=== PATIENT | male | born 1960 | race Two or more races ===

== ENCOUNTER 2021-06-18 10:36 | Inpatient (IN) ==
[2021-06-18] MEDS ORDERED: CALCIUM GLUCONATE 10% 1,000 MG in SODIUM CHLORIDE 0.9% 50 ML IV STA (11:03)
[2021-06-18] MEDS ORDERED: ACETAMINOPHEN 500 MG TAB PO STA (11:03)
[2021-06-18] MEDS ORDERED: ONDANSETRON INJ 2 MG/ML 2 ML VIAL IV STA (11:04)
--- NOTE | 2021-06-18 11:04 | Emergency Department Note ---
History of Present Illness General Chief complaint: Shortness of Breath/Dyspnea Stated complaint: SOB Time Seen by Provider: 06/18/21 10:50 History of Present Illness Provider complaint: "I need dialysis" Onset (ago): day(s) 1 Associated symptoms: + fever/chills, + malaise, + nausea/vomiting and + shortness of breath; no chest pain, no cough or no headaches [id number] male presents emergency department I need dialysis". Patient is from [place] [facility]. Patient states he flew from [place] [facility] on Friday. Patient states he has end-stage renal disease on hemodialysis Friday and . Patient states last night he began not feeling well. He reports having cough, shortness of breath, and nausea. No vomiting. Patient reports he has not felt feverish. Patient states he flew from [place] [facility] on Friday and went to a [employer] dialysis station today and was referred to the emergency department because he is not have any hemodialysis orders or recovery manager in this country. Home Medications Medication Instructions Recorded Confirmed Type bisoprolol fumarate 5 mg tablet 2.5 mg PO DAILY 06/18/21 06/18/21 History fluticasone fur. 100 mcg-umeclid 1 inh INHALATION DAILY 06/18/21 06/18/21 History 62.5 mcg-vilant 25 mcg inhalat.powder (Trelegy Ellipta) gabapentin 400 mg capsule 400 mg PO HS 06/18/21 06/18/21 History gel base no.102 (bulk) (Carbomer 1 ea MISCELLANEOUS HS 06/18/21 06/18/21 History Gel-Aqueous) iron fum-vit C-B complex-FA 29 1 tab PO DAILY 06/18/21 06/18/21 History mg-800 mcg tablet (DIALYVITE 800 with Iron) linagliptin 5 mg tablet 5 mg PO DAILY 06/18/21 06/18/21 History Allergies Allergy/AdvReac Type Severity Reaction Status Date / Time No Known Allergies Allergy Unverified 06/18/21 12:50 Past Med/Surg History Medical History Diabetes ESRD on dialysis HTN (hypertension) No pertinent family history Surgical History No pertinent past surgical history Social History Smoking Status: Current every day smoker Feels Safe at Home: Yes Review of Systems A total of 10 systems reviewed and were otherwise negative Physical Exam Vital Signs Vital Signs - 24 hr 06/18/21 10:40 06/18/21 10:51 06/18/21 11:21 Temperature 38 C H Temperature Source Oral Pulse Rate 95 H Pulse Rate [Left Radial] Pulse Rate from SpO2 Sensor Respiratory Rate 22 Respiratory Effort / Characteristics Non-Labored Spontaneous Non-Labored Spontaneous Non-Labored Spontaneous Respiratory Depth Normal Respiratory Pattern Regular Blood Pressure 182/79 H Blood Pressure Mean 113 Blood Pressure Position Lying Pulse Oximetry 95 Oxygen Delivery Method Room Air Room Air Room Air Oxygen Flow Rate Sepsis Recent Fever Within 48 Hours No Sepsis New/Unexplained Change in Mental Status No Sepsis Action Taken by Nursing No Action Required Oxygen Flow Rate - Titration Pulse Oximetry Post Tiitration 06/18/21 11:22 06/18/21 11:27 06/18/21 11:30 Temperature Temperature Source Pulse Rate 93 H Pulse Rate [Left Radial] Pulse Rate from SpO2 Sensor 94 H Respiratory Rate 23 Respiratory Effort / Characteristics Non-Labored Spontaneous Respiratory Depth Respiratory Pattern Blood Pressure 135/73 Blood Pressure Mean 93 Blood Pressure Position Pulse Oximetry 93 Oxygen Delivery Method Room Air Room Air Room Air Oxygen Flow Rate Sepsis Recent Fever Within 48 Hours Sepsis New/Unexplained Change in Mental Status Sepsis Action Taken by Nursing Oxygen Flow Rate - Titration Pulse Oximetry Post Tiitration 06/18/21 11:46 06/18/21 12:00 06/18/21 12:21 Temperature Temperature Source Pulse Rate 93 H Pulse Rate [Left Radial] Pulse Rate from SpO2 Sensor 93 H Respiratory Rate 21 Respiratory Effort / Characteristics Non-Labored Spontaneous Respiratory Depth Respiratory Pattern Blood Pressure 112/61 Blood Pressure Mean 78 Blood Pressure Position Pulse Oximetry 93 Oxygen Delivery Method Room Air Room Air Room Air Oxygen Flow Rate Sepsis Recent Fever Within 48 Hours Sepsis New/Unexplained Change in Mental Status Sepsis Action Taken by Nursing Oxygen Flow Rate - Titration Pulse Oximetry Post Tiitration 06/18/21 12:30 06/18/21 12:46 06/18/21 13:00 Temperature Temperature Source Pulse Rate 88 Pulse Rate [Left Radial] 90 Pulse Rate from SpO2 Sensor 88 Respiratory Rate 22 21 Respiratory Effort / Characteristics Non-Labored Spontaneous Non-Labored Spontaneous Respiratory Depth Respiratory Pattern Blood Pressure 89/49 L Blood Pressure Mean 62 Blood Pressure Position Pulse Oximetry 91 100 Oxygen Delivery Method Room Air Room Air Nebulizer Oxygen Flow Rate Sepsis Recent Fever Within 48 Hours Sepsis New/Unexplained Change in Mental Status Sepsis Action Taken by Nursing Oxygen Flow Rate - Titration Pulse Oximetry Post Tiitration 06/18/21 13:12 06/18/21 13:14 06/18/21 13:30 Temperature Temperature Source Pulse Rate 88 87 93 H Pulse Rate [Left Radial] Pulse Rate from SpO2 Sensor 88 87 84 Respiratory Rate 21 26 H 26 H Respiratory Effort / Characteristics Non-Labored Spontaneous Respiratory Depth Respiratory Pattern Blood Pressure 79/44 L 89/45 L 84/45 L Blood Pressure Mean 55 59 58 Blood Pressure Position Pulse Oximetry 100 100 99 Oxygen Delivery Method Nebulizer Nebulizer Nebulizer Oxygen Flow Rate Sepsis Recent Fever Within 48 Hours Sepsis New/Unexplained Change in Mental Status Sepsis Action Taken by Nursing Oxygen Flow Rate - Titration Pulse Oximetry Post Tiitration 06/18/21 13:45 06/18/21 14:00 06/18/21 14:15 Temperature Temperature Source Pulse Rate 89 98 H 96 H Pulse Rate [Left Radial] Pulse Rate from SpO2 Sensor 88 99 H 95 H Respiratory Rate 24 25 H 14 Respiratory Effort / Characteristics Non-Labored Spontaneous Respiratory Depth Respiratory Pattern Blood Pressure 79/41 L 103/58 L 91/41 L Blood Pressure Mean 53 73 57 Blood Pressure Position Pulse Oximetry 100 93 98 Oxygen Delivery Method Nebulizer Nebulizer Oxygen Flow Rate Sepsis Recent Fever Within 48 Hours Sepsis New/Unexplained Change in Mental Status Sepsis Action Taken by Nursing Oxygen Flow Rate - Titration Pulse Oximetry Post Tiitration 06/18/21 14:28 06/18/21 14:30 06/18/21 14:39 Temperature 37.2 C Temperature Source Oral Pulse Rate 94 H Pulse Rate [Left Radial] Pulse Rate from SpO2 Sensor 94 H Respiratory Rate 17 Respiratory Effort / Characteristics Non-Labored Spontaneous Respiratory Depth Respiratory Pattern Blood Pressure 93/49 L Blood Pressure Mean 63 Blood Pressure Position Pulse Oximetry 88 L 94 Oxygen Delivery Method Nasal Cannula Nasal Cannula Oxygen Flow Rate 0 2 Sepsis Recent Fever Within 48 Hours Sepsis New/Unexplained Change in Mental Status Sepsis Action Taken by Nursing Oxygen Flow Rate - Titration 2 Pulse Oximetry Post Tiitration 94 06/18/21 14:45 06/18/21 14:47 06/18/21 14:51 Temperature Temperature Source Pulse Rate 91 H 91 H 91 H Pulse Rate [Left Radial] Pulse Rate from SpO2 Sensor 91 H 91 H 91 H Respiratory Rate 17 17 22 Respiratory Effort / Characteristics Respiratory Depth Respiratory Pattern Blood Pressure 77/43 L 74/41 L 91/48 L Blood Pressure Mean 54 52 62 Blood Pressure Position Pulse Oximetry 95 95 97 Oxygen Delivery Method Oxygen Flow Rate 2 2 2 Sepsis Recent Fever Within 48 Hours Sepsis New/Unexplained Change in Mental Status Sepsis Action Taken by Nursing Oxygen Flow Rate - Titration Pulse Oximetry Post Tiitration 06/18/21 15:00 06/18/21 15:15 06/18/21 15:30 Temperature Temperature Source Pulse Rate 92 H 89 90 Pulse Rate [Left Radial] Pulse Rate from SpO2 Sensor 93 H 89 90 Respiratory Rate 18 18 17 Respiratory Effort / Characteristics Non-Labored Spontaneous Non-Labored Spontaneous Respiratory Depth Respiratory Pattern Blood Pressure 122/57 L 115/52 L 123/58 L Blood Pressure Mean 78 73 79 Blood Pressure Position Pulse Oximetry 96 95 97 Oxygen Delivery Method Nasal Cannula Nasal Cannula Nasal Cannula Oxygen Flow Rate 2 2 2 Sepsis Recent Fever Within 48 Hours Sepsis New/Unexplained Change in Mental Status Sepsis Action Taken by Nursing Oxygen Flow Rate - Titration Pulse Oximetry Post Tiitration 06/18/21 15:45 06/18/21 16:00 06/18/21 16:15 Temperature Temperature Source Pulse Rate 88 90 90 Pulse Rate [Left Radial] Pulse Rate from SpO2 Sensor 88 89 90 Respiratory Rate 16 17 16 Respiratory Effort / Characteristics Non-Labored Spontaneous Respiratory Depth Respiratory Pattern Blood Pressure 101/50 L 131/63 101/56 L Blood Pressure Mean 67 85 71 Blood Pressure Position Pulse Oximetry 98 97 97 Oxygen Delivery Method Nasal Cannula Nasal Cannula Nasal Cannula Oxygen Flow Rate 2 2 2 Sepsis Recent Fever Within 48 Hours Sepsis New/Unexplained Change in Mental Status Sepsis Action Taken by Nursing Oxygen Flow Rate - Titration Pulse Oximetry Post Tiitration 06/18/21 16:30 06/18/21 16:45 06/18/21 17:00 Temperature Temperature Source Pulse Rate 93 H 89 89 Pulse Rate [Left Radial] Pulse Rate from SpO2 Sensor 93 H 89 90 Respiratory Rate 19 15 16 Respiratory Effort / Characteristics Non-Labored Spontaneous Non-Labored Spontaneous Respiratory Depth Respiratory Pattern Blood Pressure 118/60 94/52 L 95/50 L Blood Pressure Mean 79 66 65 Blood Pressure Position Pulse Oximetry 96 96 96 Oxygen Delivery Method Nasal Cannula Nasal Cannula Nasal Cannula Oxygen Flow Rate 2 2 2 Sepsis Recent Fever Within 48 Hours Sepsis New/Unexplained Change in Mental Status Sepsis Action Taken by Nursing Oxygen Flow Rate - Titration Pulse Oximetry Post Tiitration 06/18/21 17:15 06/18/21 17:30 Temperature Temperature Source Pulse Rate 88 88 Pulse Rate [Left Radial] Pulse Rate from SpO2 Sensor 88 88 Respiratory Rate 26 H 30 H Respiratory Effort / Characteristics Respiratory Depth Respiratory Pattern Blood Pressure 127/62 127/65 Blood Pressure Mean 83 85 Blood Pressure Position Pulse Oximetry 96 97 Oxygen Delivery Method Nasal Cannula Nasal Cannula Oxygen Flow Rate 2 2 Sepsis Recent Fever Within 48 Hours Sepsis New/Unexplained Change in Mental Status Sepsis Action Taken by Nursing Oxygen Flow Rate - Titration Pulse Oximetry Post Tiitration Physical Exam GENERAL: He is oriented to person, place, and time. He appears well-developed and well-nourished. He does not appear distressed. HENT: Exam performed. - Head: Normocephalic and atraumatic. - Right Ear: External ear normal. No mastoid tenderness. - Left Ear: External ear normal. No mastoid tenderness. - Mouth/Throat: The oropharynx is clear and moist. No trismus in the jaw. No dental abscesses or uvula swelling. No oropharyngeal exudate or tonsillar abscesses. EYES: Conjunctivae and EOM are normal. Pupils are equal, round, and reactive to light. Right eye exhibits no discharge. Left eye exhibits no discharge. No scleral icterus. NECK: Normal range of motion. Neck supple. No JVD present. No spinous process tenderness present. No carotid bruit present. No rigidity. No tracheal deviation and normal range of motion present. No Brudzinski's sign and no Kernig's sign noted. CV: Normal rate, regular rhythm, normal heart sounds and intact distal pulses. There is no peripheral edema. Palpable radial pulses bue. PULM/CHEST: Rhonchi and rales bilaterally. ABD: The abdomen is soft. Bowel sounds are normal. He has no distension. No mass is present. There is no tenderness. There is no rebound, no guarding, no Smith's sign and no tenderness at McBurney's point. Rovsig negative. MUSC/SKEL: Left upper extremity AV fistula with palpable thrill. LYMPH: No cervical adenopathy. NEURO: He is alert and oriented to person, place, and time. He has normal strength. No cranial nerve deficit or sensory deficit. Coordination and gait normal. GCS eye subscore is 4. GCS verbal subscore is 5. GCS motor subscore is 6. Cerebellar tests wnl. SKIN: Skin is warm and dry. He is not diaphoretic. PSYCH: He has a normal mood and affect. Behavior is normal. Judgment and thought content normal. Course Course 1050: The patient was evaluated in room C3. A complete history and physical exam was performed Cardiac monitoring: An order was placed for continuous cardiac monitoring. The monitor shows a rate of 90 with sinus rhythm 1105: EKG shows peaked T waves. Calcium gluconate ordered for the patient. 1225: Patient was a difficult vascular access. Labs were obtained and the patient's [id number] potassium 7.6. Given this as well as the clinical history of the patient missing dialysis, and the patient's PTH, the patient will be treated with insulin and dextrose, albuterol inhaler, bicarb, and Kayexalate. 1237: Discussed patient's case with Dr. Shamar PATEL nephrology. He states that he did not have a dialysis nurse currently. He states that he will try to arrange for dialysis nurse to be brought in to the patient can be dialyzed. 1327:Patient now hypotensive. Labs show leukocytosis of 18.2. Potassium 7.5. Creatinine 13.9. Anion gap 14. Covid negative. Chest x-ray shows fluid overload and left lower lung airspace opacity which may represent atelectasis pneumonia or aspiration. Given the patient's leukocytosis and fever, will treat with empiric antibiotics. Discussed with Dr. Hong nephrology, he states if the patient is stabilized that the patient can be admitted to the hospitalist team and he can arrange for dialysis later tonight as he is getting treatment regimen that should lower the patient's potassium. Discussed the case with Dr. Lavinia PATEL hospitalist who is asking that the patient be evaluated by the ICU team given the hypotension and him needing dialysis. 1345:Patient remaining hypotensive. Patient alert and oriented x3 asking for food. 250 cc normal saline bolus ordered for the patient.Spoke with ICU Dr. Dominique who states there are no ICU beds available at this time. He states that the patient is mentating well that the patient can be admitted to the PCU. Discussed with Dr. Gordon who will evaluate the patient further. 1400: Vital signs stable after IV fluid bolus. Patient tolerating p.o. with no distress. 1500: Vital signs stable. Blood pressure stable. Patient's blood pressure went down when he was asleep but is normal when he is awake. Patient asking for more food and to get dialysis. Awaiting hospital bed. Administered Medications Discontinued Medications Acetaminophen (Acetaminophen 500 Mg Tab) 1,000 mg PO NOW STA Stop: 06/18/21 11:04 Last Admin: 06/18/21 11:29 Dose: 1,000 mg Documented by: [id number] Albuterol (Albuterol 0.5% Neb Soln 2.5 Mg/0.5 Ml Vial) 10 mg NEB NOW STA Stop: 06/18/21 12:22 Last Admin: 06/18/21 12:46 Dose: 10 mg Documented by: [id number] Dextrose (Dextrose 50% 50 Ml Syringe) 50 ml IV NOW STA Stop: 06/18/21 12:22 Last Admin: 06/18/21 12:41 Dose: 50 ml Documented by: [id number] Calcium Gluconate 1,000 mg/ (Sodium Chloride) 60 mls @ 240 mls/hr IV NOW STA Stop: 06/18/21 11:17 Last Infusion: 06/18/21 11:44 Dose: 0 mls/hr Documented by: [id number] Admin: 06/18/21 11:29 Dose: 240 mls/hr Documented by: [id number] Insulin Human Regular 5 units/ (Syringe) 9.9 mls @ 3 mls/sec IV ONE STA Stop: 06/18/21 12:22 Last Admin: 06/18/21 12:42 Dose: 3 mls/sec Documented by: [id number] Cosigned by: [id number] Sodium Bicarbonate 150 meq/ (Dextrose) 1,150 mls @ 290 mls/hr IV .Q3H58M STA Stop: 06/18/21 16:18 Last Infusion: 06/18/21 16:14 Dose: 0 mls/hr Documented by: [id number] Infusion: 06/18/21 13:17 Dose: 0 mls/hr Documented by: [id number] Admin: 06/18/21 12:53 Dose: 290 mls/hr Documented by: [id number] Cefepime HCl (Maxipime) 2,000 mg in 20 mls @ 5 mls/min IV NOW STA; Protocol Stop: 06/18/21 13:21 Last Admin: 06/18/21 13:41 Dose: 5 mls/min Documented by: [id number] Vancomycin HCl 2,250 mg/ (Sodium Chloride) 545 mls @ 200 mls/hr IV NOW ONE Stop: 06/18/21 16:01 Last Infusion: 06/18/21 16:36 Dose: 0 mls/hr Documented by: [id number] Admin: 06/18/21 13:52 Dose: 200 mls/hr Documented by: [id number] Sodium Chloride (Nss 1000ml) 250 mls @ 999 mls/hr IV .Q16M ONE Stop: 06/18/21 13:55 Last Infusion: 06/18/21 14:05 Dose: 0 mls/hr Documented by: [id number] Admin: 06/18/21 13:49 Dose: 999 mls/hr Documented by: [id number] Albumin Human (Albumin 25%) 12.5 gm in 50 mls @ 50 mls/hr IV Q1H TUSHAR Stop: 06/18/21 17:29 Last Infusion: 06/18/21 16:48 Dose: 0 mls/hr Documented by: [id number] Admin: 06/18/21 15:59 Dose: 50 mls/hr Documented by: [id number] Infusion: 06/18/21 15:58 Dose: 0 mls/hr Documented by: [id number] Admin: 06/18/21 15:20 Dose: 50 mls/hr Documented by: [id number] Infusion: 06/18/21 15:19 Dose: 0 mls/hr Documented by: [id number] Admin: 06/18/21 14:34 Dose: 50 mls/hr Documented by: [id number] Insulin Human Regular (Novolin-R Insulin Per Unit Charge) Confirm Administered Dose 5 units .ROUTE .STK-MED ONE Stop: 06/18/21 12:37 Last Admin: 06/18/21 12:49 Dose: Not Given Documented by: [id number] Ondansetron HCl (Ondansetron Inj 2 Mg/Ml 2 Ml Vial) 4 mg IV NOW STA Stop: 06/18/21 11:05 Last Admin: 06/18/21 11:28 Dose: 4 mg Documented by: [id number] Sodium Bicarbonate (Sodium Bicarb 8.4% Inj 50 Meq/50 Ml Syr) 50 meq IV NOW STA Stop: 06/18/21 13:20 Last Admin: 06/18/21 13:41 Dose: 50 meq Documented by: [id number] Sodium Polystyrene Sulfonate (Sodium Polystyrene Sulfonate 15g/60ml Susp) 15 gm PO NOW STA Stop: 06/18/21 12:22 Last Admin: 06/18/21 13:17 Dose: 15 gm Documented by: [id number] Sodium Polystyrene Sulfonate (Sodium Polystyrene Sulfonate 15g/60ml Susp) 15 gm PO NOW STA Stop: 06/18/21 13:09 Last Admin: 06/18/21 13:40 Dose: 15 gm Documented by: [id number] Critical Care Time Critical Care Time: Yes Total Critical Care Time: 115 I have personally spent greater than 115 minutes of critical care time in the direct management of this patient. This includes bedside care, interpretation of diagnostic studies, and testing, discussion with consultants, patient, and family members, and other required patient management activities. This 115 minutes is in excess of all separately billable procedures. Medical Decision Making Laboratory Data Result diagrams: 06/18/21 11:59 06/18/21 11:59 Lab Results 06/18/21 06/18/21 06/18/21 Range/Units 11:30 11:30 11:30 WBC (4.8-10.8) K/uL RBC (4.7-6.1) M/uL Hgb (14.0-18.0) g/dL POC Hgb (14.0-18.0) g/dl Hct (42-52) % POC Hct (42-52) % MCV (80-100) fL MCH (25-34) pg MCHC (32-36) g/dL RDW Std Deviation (36.4-46.3) fL RDW Coeff of Elzbieta (11.5-14.5) % Plt Count (130-400) K/uL MPV (7.4-10.4) fL Immature Gran % (Auto) % Neut % (Auto) % Lymph % (Auto) % Mills % (Auto) % Eos % (Auto) % Baso % (Auto) % Neut # (Auto) (1.4-6.5) K/uL Lymph # (Auto) (1.2-3.4) K/uL Mills # (Auto) (0.11-0.59) K/uL Eos # (Auto) (0-0.5) K/uL Baso # (Auto) (0-0.2) K/uL Immature Gran # (Auto) (0.00-0.02) K/uL PT (9.0-12.0) Seconds INR (0.9-1.1) APTT (21.0-31.0) Seconds PTT Ratio POC Sodium (135-144) mmol/L Sodium (136-145) mmol/L POC Potassium (3.3-5.0) mmol/L Potassium (3.5-5.1) mmol/L POC Chloride (101-112) mmol/L Chloride (98-107) mmol/L Carbon Dioxide (21-32) mmol/L POC Total CO2 (24-31) mmol/L Anion Gap (3-11) POC Anion Gap (16-25) mmol/L POC BUN (7-18) mg/dl BUN (7-18) mg/dl Creatinine (0.6-1.4) mg/dl POC Creatinine (0.6-1.3) mg/dl Est Cr Clr Drug Dosing ml/min Est GFR ( Amer) ml/min Est GFR (Non-Af Amer) ml/min BUN/Creatinine Ratio (10-20) Glucose (70-99) mg/dl POC Glucose (70-99) mg/dl POC Glucose (other) (70-99) mg/dl Lactate (0.4-2.0) mmol/L Calcium (8.5-10.1) mg/dl POC Ioniz Calcium Ramonita (1.12-1.32) mmol/l Magnesium (1.8-2.4) mg/dl Total Bilirubin (0.2-1) mg/dl AST (15-37) U/L ALT (12-78) U/L Alkaline Phosphatase (45-117) U/L Troponin I (0-0.045) ng/ml Total Protein (6.4-8.2) gm/dl Albumin (3.4-5.0) gm/dl Globulin (2.5-4.0) gm/dl Albumin/Globulin Ratio (0.9-2) Procalcitonin (0-0.5) ng/ml COVID-19 Eval Order Covid19 at [facility] SARS-CoV-2 (PCR) NEGATIVE (Negative) Hep Bs Antigen (Neg) Hep Bs Antibody Hep Bs Antibody, Quant (>or=10mIU/mL Immune) mIU/mL Influ A Molecular Assay Negative (Negative) Influ B Molecular Assay Negative (Negative) 06/18/21 06/18/21 06/18/21 Range/Units 11:59 11:59 11:59 WBC 18.25 H (4.8-10.8) K/uL RBC 3.57 L (4.7-6.1) M/uL Hgb 10.9 L (14.0-18.0) g/dL POC Hgb (14.0-18.0) g/dl Hct 33.6 L (42-52) % POC Hct (42-52) % MCV 94.1 (80-100) fL MCH 30.5 (25-34) pg MCHC 32.4 (32-36) g/dL RDW Std Deviation 59.3 H (36.4-46.3) fL RDW Coeff of Elzbieta 17.4 H (11.5-14.5) % Plt Count 576 H (130-400) K/uL MPV 8.8 (7.4-10.4) fL Immature Gran % (Auto) 0.3 % Neut % (Auto) 88.6 % Lymph % (Auto) 6.8 % Mills % (Auto) 3.1 % Eos % (Auto) 0.9 % Baso % (Auto) 0.3 % Neut # (Auto) 16.16 H (1.4-6.5) K/uL Lymph # (Auto) 1.24 (1.2-3.4) K/uL Mills # (Auto) 0.56 (0.11-0.59) K/uL Eos # (Auto) 0.17 (0-0.5) K/uL Baso # (Auto) 0.06 (0-0.2) K/uL Immature Gran # (Auto) 0.06 H (0.00-0.02) K/uL PT (9.0-12.0) Seconds INR (0.9-1.1) APTT (21.0-31.0) Seconds PTT Ratio POC Sodium (135-144) mmol/L Sodium 129 L (136-145) mmol/L POC Potassium (3.3-5.0) mmol/L Potassium 7.5 H* (3.5-5.1) mmol/L POC Chloride (101-112) mmol/L Chloride 97 L (98-107) mmol/L Carbon Dioxide 19 L (21-32) mmol/L POC Total CO2 (24-31) mmol/L Anion Gap 14.0 H (3-11) POC Anion Gap (16-25) mmol/L POC BUN (7-18) mg/dl BUN 87 H (7-18) mg/dl Creatinine 13.90 H* (0.6-1.4) mg/dl POC Creatinine (0.6-1.3) mg/dl Est Cr Clr Drug Dosing 6.0 ml/min Est GFR ( Amer) 3.9 ml/min Est GFR (Non-Af Amer) 3.4 ml/min BUN/Creatinine Ratio 6.3 L (10-20) Glucose 144 H (70-99) mg/dl POC Glucose (70-99) mg/dl POC Glucose (other) (70-99) mg/dl Lactate (0.4-2.0) mmol/L Calcium 8.2 L (8.5-10.1) mg/dl POC Ioniz Calcium Ramonita (1.12-1.32) mmol/l Magnesium 2.4 (1.8-2.4) mg/dl Total Bilirubin 0.4 (0.2-1) mg/dl AST 4 L (15-37) U/L ALT 10 L (12-78) U/L Alkaline Phosphatase 124 H (45-117) U/L Troponin I < 0.015 (0-0.045) ng/ml Total Protein 8.4 H (6.4-8.2) gm/dl Albumin 3.5 (3.4-5.0) gm/dl Globulin 4.9 H (2.5-4.0) gm/dl Albumin/Globulin Ratio 0.7 L (0.9-2) Procalcitonin 0.44 (0-0.5) ng/ml COVID-19 Eval Order SARS-CoV-2 (PCR) (Negative) Hep Bs Antigen (Neg) Hep Bs Antibody Hep Bs Antibody, Quant (>or=10mIU/mL Immune) mIU/mL Influ A Molecular Assay (Negative) Influ B Molecular Assay (Negative) 06/18/21 06/18/21 06/18/21 Range/Units 11:59 11:59 12:05 WBC (4.8-10.8) K/uL RBC (4.7-6.1) M/uL Hgb (14.0-18.0) g/dL POC Hgb (14.0-18.0) g/dl Hct (42-52) % POC Hct (42-52) % MCV (80-100) fL MCH (25-34) pg MCHC (32-36) g/dL RDW Std Deviation (36.4-46.3) fL RDW Coeff of Elzbieta (11.5-14.5) % Plt Count (130-400) K/uL MPV (7.4-10.4) fL Immature Gran % (Auto) % Neut % (Auto) % Lymph % (Auto) % Mills % (Auto) % Eos % (Auto) % Baso % (Auto) % Neut # (Auto) (1.4-6.5) K/uL Lymph # (Auto) (1.2-3.4) K/uL Mills # (Auto) (0.11-0.59) K/uL Eos # (Auto) (0-0.5) K/uL Baso # (Auto) (0-0.2) K/uL Immature Gran # (Auto) (0.00-0.02) K/uL PT 10.2 (9.0-12.0) Seconds INR 1.0 (0.9-1.1) APTT 30.9 (21.0-31.0) Seconds PTT Ratio 1.2 POC Sodium (135-144) mmol/L Sodium (136-145) mmol/L POC Potassium (3.3-5.0) mmol/L Potassium (3.5-5.1) mmol/L POC Chloride (101-112) mmol/L Chloride (98-107) mmol/L Carbon Dioxide (21-32) mmol/L POC Total CO2 (24-31) mmol/L Anion Gap (3-11) POC Anion Gap (16-25) mmol/L POC BUN (7-18) mg/dl BUN (7-18) mg/dl Creatinine (0.6-1.4) mg/dl POC Creatinine (0.6-1.3) mg/dl Est Cr Clr Drug Dosing ml/min Est GFR ( Amer) ml/min Est GFR (Non-Af Amer) ml/min BUN/Creatinine Ratio (10-20) Glucose (70-99) mg/dl POC Glucose (70-99) mg/dl POC Glucose (other) (70-99) mg/dl Lactate 1.2 (0.4-2.0) mmol/L Calcium (8.5-10.1) mg/dl POC Ioniz Calcium Ramonita (1.12-1.32) mmol/l Magnesium (1.8-2.4) mg/dl Total Bilirubin (0.2-1) mg/dl AST (15-37) U/L ALT (12-78) U/L Alkaline Phosphatase (45-117) U/L Troponin I (0-0.045) ng/ml Total Protein (6.4-8.2) gm/dl Albumin (3.4-5.0) gm/dl Globulin (2.5-4.0) gm/dl Albumin/Globulin Ratio (0.9-2) Procalcitonin (0-0.5) ng/ml COVID-19 Eval Order SARS-CoV-2 (PCR) (Negative) Hep Bs Antigen Neg (Neg) Hep Bs Antibody Non-Immune Hep Bs Antibody, Quant 3.26 L (>or=10mIU/mL Immune) mIU/mL Influ A Molecular Assay (Negative) Influ B Molecular Assay (Negative) 06/18/21 06/18/21 Range/Units 12:12 14:55 WBC (4.8-10.8) K/uL RBC (4.7-6.1) M/uL Hgb (14.0-18.0) g/dL POC Hgb 11.9 L (14.0-18.0) g/dl Hct (42-52) % POC Hct 35 L (42-52) % MCV (80-100) fL MCH (25-34) pg MCHC (32-36) g/dL RDW Std Deviation (36.4-46.3) fL RDW Coeff of Elzbieta (11.5-14.5) % Plt Count (130-400) K/uL MPV (7.4-10.4) fL Immature Gran % (Auto) % Neut % (Auto) % Lymph % (Auto) % Mills % (Auto) % Eos % (Auto) % Baso % (Auto) % Neut # (Auto) (1.4-6.5) K/uL Lymph # (Auto) (1.2-3.4) K/uL Mills # (Auto) (0.11-0.59) K/uL Eos # (Auto) (0-0.5) K/uL Baso # (Auto) (0-0.2) K/uL Immature Gran # (Auto) (0.00-0.02) K/uL PT (9.0-12.0) Seconds INR (0.9-1.1) APTT (21.0-31.0) Seconds PTT Ratio POC Sodium 131 L (135-144) mmol/L Sodium (136-145) mmol/L POC Potassium 7.6 H* (3.3-5.0) mmol/L Potassium (3.5-5.1) mmol/L POC Chloride 101 (101-112) mmol/L Chloride (98-107) mmol/L Carbon Dioxide (21-32) mmol/L POC Total CO2 19 L (24-31) mmol/L Anion Gap (3-11) POC Anion Gap 20.0 (16-25) mmol/L POC BUN 91 H (7-18) mg/dl BUN (7-18) mg/dl Creatinine (0.6-1.4) mg/dl POC Creatinine 15.2 H* (0.6-1.3) mg/dl Est Cr Clr Drug Dosing ml/min Est GFR ( Amer) ml/min Est GFR (Non-Af Amer) ml/min BUN/Creatinine Ratio (10-20) Glucose (70-99) mg/dl POC Glucose 188 H (70-99) mg/dl POC Glucose (other) 144 H (70-99) mg/dl Lactate (0.4-2.0) mmol/L Calcium (8.5-10.1) mg/dl POC Ioniz Calcium Ramonita 0.97 L (1.12-1.32) mmol/l Magnesium (1.8-2.4) mg/dl Total Bilirubin (0.2-1) mg/dl AST (15-37) U/L ALT (12-78) U/L Alkaline Phosphatase (45-117) U/L Troponin I (0-0.045) ng/ml Total Protein (6.4-8.2) gm/dl Albumin (3.4-5.0) gm/dl Globulin (2.5-4.0) gm/dl Albumin/Globulin Ratio (0.9-2) Procalcitonin (0-0.5) ng/ml COVID-19 Eval Order SARS-CoV-2 (PCR) (Negative) Hep Bs Antigen (Neg) Hep Bs Antibody Hep Bs Antibody, Quant (>or=10mIU/mL Immune) mIU/mL Influ A Molecular Assay (Negative) Influ B Molecular Assay (Negative) Imaging Data Radiologist's Impression: Chest X-Ray 06/18/21 10:51 XR chest 1V portable INDICATION: MN ^SEPSIS . TECHNIQUE: Single frontal radiograph of the chest was obtained. Comparison: None available at the time of this dictation. FINDINGS: No lines and tubes are seen. The cardiomediastinal silhouette is normal. There is prominence and cephalization of the vasculature. There is an ill-defined airspace opacity in the left lower lung. No evidence of pleural effusion or pneumothorax. IMPRESSION: 1. Mild pulmonary edema. 2. Left lower lung airspace opacity which may represent atelectasis, pneumonia, and/or aspiration. ACT 112: Negative or not required by law. Electronically signed by: Tobi Alejo M.D. 06/18/2021 11:52 AM ECG Data Indication: + SOB/dyspnea Rate (beats per minute): 96 Rhythm: + normal sinus ECG Intervals/blocks: + Right Bundle branch block ECG ST segments: + Normal ST segments ECG Findings: + Peaked T waves MDM Narrative 1050: The patient was evaluated in room C3. A complete history and physical exam was performed Cardiac monitoring: An order was placed for continuous cardiac monitoring. The monitor shows a rate of 90 with sinus rhythm 1105: EKG shows peaked T waves. Calcium gluconate ordered for the patient. 1225: Patient was a difficult vascular access. Labs were obtained and the patient's dzaoh-pl-ezho potassium 7.6. Given this as well as the clinical his tory of the patient missing dialysis, and the patient's PTH, the patient will be treated with insulin and dextrose, albuterol inhaler, bicarb, and Kayexalate. 1237: Discussed patient's case with Dr. Shamar PATEL nephrology. He states that he did not have a dialysis nurse currently. He states that he will try to arrange for dialysis nurse to be brought in to the patient can be dialyzed. 1327:Patient now hypotensive. Labs show leukocytosis of 18.2. Potassium 7.5. Creatinine 13.9. Anion gap 14. Covid negative. Chest x-ray shows fluid overload and left lower lung airspace opacity which may represent atelectasis pneumonia or aspiration. Given the patient's leukocytosis and fever, will treat with empiric antibiotics. Discussed with Dr. Hong nephrology, he states if the patient is stabilized that the patient can be admitted to the hospitalist team and he can arrange for dialysis later tonight as he is getting treatment regimen that should lower the patient's potassium. Discussed the case with Dr. Lavinia PATEL hospitalist who is asking that the patient be evaluated by the ICU team giv en the hypotension and him needing dialysis. 1345:Patient remaining hypotensive. Patient alert and oriented x3 asking for food. 250 cc normal saline bolus ordered for the patient.Spoke with ICU Dr. Dominique who states there are no ICU beds available at this time. He states that the patient is mentating well that the patient can be admitted to the PCU. Discussed with Dr. Gordon who will evaluate the patient further. 1400: Vital signs stable after IV fluid bolus. Patient tolerating p.o. with no distress. 1500: Vital signs stable. Blood pressure stable. Patient's blood pressure went down when he was asleep but is normal when he is awake. Patient asking for more food and to get dialysis. Awaiting hospital bed. Impression & Plan Acute hyperkalemia, Pneumonia, Encounter for hemodialysis for ESRD Discharge Plan Visit Data Chief Complaint: Shortness of Breath/Dyspnea Stated Complaint: SOB ED Provider: Chris Erwin Discharge Problem: Acute hyperkalemia, Pneumonia, Encounter for hemodialysis for ESRD Patient Disposition: Admitted As Inpatient Forms Stand Alone Forms: My [facility] Prescriptions Prescriptions: No Action gabapentin 400 mg Capsule 400 mg PO HS RF: 0 bisoprolol fumarate 5 mg Tablet 2.5 mg PO DAILY RF: 0 DIALYVITE 800 with Iron 29-800 mg-mcg Tablet 1 tab PO DAILY RF: 0 linagliptin 5 mg Tablet 5 mg PO DAILY RF: 0 Carbomer Gel-Aqueous Gel 1 ea miscellaneous HS RF: 0 Trelegy Ellipta 100-62.5-25 mcg Blister With Device 1 inh INHALATION DAILY RF: 0 Referrals Referrals: PCP,NO [Primary Care Provider] - Discharge Problem: Pneumonia Qualifiers: Pneumonia type: due to unspecified organism Laterality: left Lung location: unspecified part of lung Qualified Code(s): J18.9 - Pneumonia, unspecified organism
--- NOTE | 2021-06-18 11:53 | XRay Report ---
XR chest 1V portable INDICATION: MN ^SEPSIS . TECHNIQUE: Single frontal radiograph of the chest was obtained. Comparison: None available at the time of this dictation. FINDINGS: No lines and tubes are seen. The cardiomediastinal silhouette is normal. There is prominence and ceph alization of the vasculature. There is an ill-defined airspace opacity in the left lower lung. No la dence of pleural effusion or pneumothorax. IMPRESSION: 1. Mild pulmonary edema. 2. Left lower lung airspace opacity which may represent atelectasis, pneumonia, and/or aspiration. ACT 112: Negative or not required by law. Electronically signed by: Tobi Alejo M.D. 06/18/2021 11:52 AM
[2021-06-18 12:11] LABS: Influenza A virus by PCR Negative (Negative); Influenza B virus by PCR Negative (Negative)
[2021-06-18] MEDS ORDERED: SODIUM POLYSTYRENE SULFONATE 15G/60ML SUSP PO STA ×2 (12:21→13:08)
[2021-06-18] MEDS ORDERED: INSULIN HUMAN REGULAR PER UNIT 5 UNITS in SYRINGE 9.9 ML IV STA (12:21)
[2021-06-18] MEDS ORDERED: ALBUTEROL 0.5% NEB SOLN 2.5 MG/0.5 ML VIAL NEB STA (12:21)
[2021-06-18] MEDS ORDERED: DEXTROSE 50% 50 ML SYRINGE IV STA (12:21)
[2021-06-18] MEDS ORDERED: SODIUM BICARBONATE 8.4% 150 MEQ in DEXTROSE 5% 1,000 ML IV STA (12:21)
[2021-06-18 12:24] LABS: Hematocrit (blood only) 33.6 % (42-52); Hemoglobin 10.9 g/dL (14.0-18.0); Mean Corpuscular Hemoglobin 30.5 pg (25-34); Mean Corpuscular Hgb Conc 32.4 g/dL (32-36); Mean Corpuscular Volume 94.1 fL (80-100); Mean Platelet Volume 8.8 fL (7.4-10.4); Platelet Count 576 K/uL (130-400); RDW Coefficient of Variation 17.4 % (11.5-14.5); RDW Standard Deviation 59.3 fL (36.4-46.3); Red Blood Count 3.57 M/uL (4.7-6.1); White Blood Count 18.25 K/uL (4.8-10.8)
[2021-06-18 12:30] LABS: iSTAT Creatinine 15.2 mg/dl (0.6-1.3); iSTAT Hemoglobin 11.9 g/dl (14.0-18.0); iSTAT Ionized Calcium 0.97 mmol/l (1.12-1.32); iSTAT Potassium 7.6 mmol/L (3.3-5.0)
[2021-06-18] MEDS ORDERED: NovoLIN-R INSULIN PER UNIT CHARGE ONE (12:36)
[2021-06-18 12:40] LABS: Partial Thromboplastin Ratio 1.2; Partial Thromboplastin Time 30.9 Seconds (21.0-31.0); Prothrombin Time 10.2 Seconds (9.0-12.0)
[2021-06-18 12:41] LABS: Basophils # (auto) 0.06 K/uL (0-0.2); Basophils % (auto) 0.3 %; Eosinophils # (auto) 0.17 K/uL (0-0.5); Eosinophils % (auto) 0.9 %; Immature Granulocytes # (auto) 0.06 K/uL (0.00-0.02); Immature Granulocytes % (auto) 0.3 %; Lymphocytes # (auto) 1.24 K/uL (1.2-3.4); Lymphocytes % (auto) 6.8 %; Monocytes # (auto) 0.56 K/uL (0.11-0.59); Monocytes % (auto) 3.1 %; Neutrophils # (auto) 16.16 K/uL (1.4-6.5); Neutrophils % (auto) 88.6 %
[2021-06-18 13:04] LABS: Alanine Aminotransferase 10 U/L (12-78); Albumin Globulin Ratio 0.7 (0.9-2); Albumin Level 3.5 gm/dl (3.4-5.0); Alkaline Phosphatase 124 U/L (45-117); Aspartate Aminotransferase 4 U/L (15-37); BUN Creatinine Ratio 6.3 (10-20); Bilirubin,Total 0.4 mg/dl (0.2-1); Blood Urea Nitrogen 87 mg/dl (7-18); Calcium 8.2 mg/dl (8.5-10.1); Carbon Dioxide 19 mmol/L (21-32); Chloride 97 mmol/L (98-107); Est GFR (African American) 3.9 ml/min; Est GFR (Non-African American) 3.4 ml/min; Globulin 4.9 gm/dl (2.5-4.0); Glucose 144 mg/dl (70-99); Magnesium 2.4 mg/dl (1.8-2.4); Potassium 7.5 mmol/L (3.5-5.1); Sodium 129 mmol/L (136-145); Total Protein 8.4 gm/dl (6.4-8.2); Troponin I < 0.015 ng/ml (0-0.045)
[2021-06-18] MEDS ORDERED: VANCOMYCIN CONSULT ACTIVE PRN (13:18)
[2021-06-18] MEDS ORDERED: CEFEPIME 2,000 MG/20 ML VIAL IV STA (13:18)
[2021-06-18] MEDS ORDERED: VANCOMYCIN HCL 2,250 MG in SODIUM CHLORIDE 0.9% 500 ML IV ONE (13:18)
[2021-06-18] MEDS ORDERED: SODIUM BICARB 8.4% INJ 50 MEQ/50 ML SYR IV STA (13:19)
[2021-06-18] MEDS ORDERED: SODIUM CHLORIDE 0.9% 1000ML 250 ML IV ONE (13:40)
--- NOTE | 2021-06-18 14:10 | History & Physical Report ---
Date of Service June 18, 2021 Assessment & Plan (1) Hyperkalemia: Plan: Likely secondary end-stage renal disease, noncompliance with dialysis Patient was given emergent treatment in the emergency room including Kayexalate, albuterol, 5 units IV insulin, and sodium bicarb I will need to recheck in a few hours, repeat treatment as indicated Nephrology is aware and patient is slated for hemodialysis as soon as possible, I was told by ER physician it may be several hours (2) Sepsis: Plan: Patient with hypotension and questionable left lower lobe infiltrate, concerning for pneumonia. Hypotensive, certainly concerning for sepsis Patient was started on cefepime, given a dose of vancomycin in the emergency room Will continue antibiotics for now, pending blood, urine and sputum cultures if obtainable Patient was given fluids for hypotension, will give IV albumin for blood pressure support (3) Diabetes: Plan: Will start sliding scale insulin Diabetic diet if able hold Linagliptin until tolerating diet (4) HTN (hypertension): Plan: On bisoprolol, will hold as patient is currently hypotensive (5) ESRD on dialysis: Plan: Treatment as noted above, patient for emergent hemodialysis with Dr. Hong as soon as available Monitor potassium as noted above Patient will need arrangements prior to discharge to continue hemodialysis as [place] stay [place] country [place]. History of Present Illness Chief Complaint: Needs hemodialysis Primary Care Provider: NO PCP This is a 60-year-old male with past medical history of end-stage renal disease, gets dialysis Friday and Friday, type 2 diabetes, and hypertension that presents today requiring dialysis. Patient is pleasant good historian, somewhat limited interview secondary to language barrier. Patient is from [place] [facility]. He typically at this hemodialysis on those 2 days noted above. He arrived in the country last . He told me that he did the fly with no issues and otherwise felt well. However he noted that he was having some low weakness that worsened over the past few days. Unfortunately, he was not aware of her dialysis is administered in this country and he did not get any treatment on Friday. Today on Friday, he presented to [facility] and requested that he be given dialysis. 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 In the emergency room, he was found to be hypotensive, down into the high 70s systolic. He is a mildly hypoxic at 93%. He did respond to a 500 cc bolus of fluids with blood pressure up to 103/58. Lab work revealed that he had a signi ficantly elevated creatinine along with a K of 7.6. He does have EKG changes with broadly peaked T waves. He is Covid negative. Patient is awake and alert, he is a very pleasant and answers all questions appropriately to the best of his ability. He does exhibit a a slight, loose sounding cough but denies any chest pain, significant shortness of breath, abdominal pain, excessive edema, or palpitations, or really any other symptoms at this time. Allergies Allergy/AdvReac Type Severity Reaction Status Date / Time No Known Allergies Allergy Unverified 06/18/21 12:50 Home Medications Medication Instructions Recorded Confirmed Type bisoprolol fumarate 5 mg tablet 2.5 mg PO DAILY 06/18/21 06/18/21 History fluticasone fur. 100 mcg-umeclid 1 inh INHALATION DAILY 06/18/21 06/18/21 History 62.5 mcg-vilant 25 mcg inhalat.powder (Trelegy Ellipta) gabapentin 400 mg capsule 400 mg PO HS 06/18/21 06/18/21 History gel base no.102 (bulk) (Carbomer 1 ea MISCELLANEOUS HS 06/18/21 06/18/21 History Gel-Aqueous) iron fum-vit C-B complex-FA 29 1 tab PO DAILY 06/18/21 06/18/21 History mg-800 mcg tablet (DIALYVITE 800 with Iron) linagliptin 5 mg tablet 5 mg PO DAILY 06/18/21 06/18/21 History Past Med/Surg History Medical History Diabetes ESRD on dialysis HTN (hypertension) No pertinent family history Surgical History No pertinent past surgical history Social History Smoking Status: Current every day smoker Feels Safe at Home: Yes Immunizations: smallpox Review of Systems Constitutional: + weakness; no fever, no chills, no weight loss and no weight gain Eyes: as per Subjective / HPI Respiratory: + cough and + chest congestion; no dyspnea and no dyspnea on exertion Cardiovascular: no chest pain, no orthopnea, no palpitations, no lightheadedness and no edema Gastrointestinal: no abdominal pain, no nausea, no vomiting, no constipation and no diarrhea/loose stools Musculoskeletal: no back pain, no neck pain, no joint pain, no stiffness and no myalgia Integumentary: no rash Neurologic: no gait abnormality, no unsteadiness, no falls and no generalized weakness Physical Exam Constitutional: cooperative; no acute distress Neck: trachea midline, no thyromegaly Respiratory: normal respiratory effort Auscultation: + crackles (diffuse); no rales, no rhonchi and no wheezes Cardiovascular: Rate/Rhythm: regular rate and regular rhythm Heart Sounds: normal S1 and normal S2 Gastrointestinal (Abdomen): Inspection/Auscultation: abdomen normal to inspection Percussion/Palpation: abdomen soft; abdomen nontender, no guarding, abdomen not rigid and no hepatosplenomegaly Skin: no rashes, warm and dry Results & Data Results & Data ([facility]) Vital Signs (Past 12 Hours) Vital Signs Temp Pulse Pulse Resp BP Pulse Ox 06/18/21 14:00 98 H 25 H 103/58 L 93 06/18/21 13:45 89 24 79/41 L 100 06/18/21 13:30 93 H 26 H 84/45 L 99 06/18/21 13:14 87 26 H 89/45 L 100 06/18/21 13:12 88 21 79/44 L 100 06/18/21 13:00 88 21 89/49 L 100 06/18/21 12:46 90 22 91 06/18/21 12:21 93 H 21 112/61 93 06/18/21 11:22 93 H 23 135/73 93 06/18/21 10:40 38 C H 95 H 22 182/79 H 95 Laboratory Results Laboratory Results WBC 18.25 K/uL (4.8-10.8) H 06/18/21 11:59 RBC 3.57 M/uL (4.7-6.1) L 06/18/21 11:59 Hgb 10.9 g/dL (14.0-18.0) L 06/18/21 11:59 POC Hgb 11.9 g/dl (14.0-18.0) L 06/18/21 12:12 Hct 33.6 % (42-52) L 06/18/21 11:59 POC Hct 35 % (42-52) L 06/18/21 12:12 MCV 94.1 fL (80-100) 06/18/21 11:59 MCH 30.5 pg (25-34) 06/18/21 11:59 MCHC 32.4 g/dL (32-36) 06/18/21 11:59 RDW Std Deviation 59.3 fL (36.4-46.3) H 06/18/21 11:59 RDW Coeff of Elzbieta 17.4 % (11.5-14.5) H 06/18/21 11:59 Plt Count 576 K/uL (130-400) H 06/18/21 11:59 MPV 8.8 fL (7.4-10.4) 06/18/21 11:59 Immature Gran % (Auto) 0.3 % 06/18/21 11:59 Neut % (Auto) 88.6 % 06/18/21 11:59 Lymph % (Auto) 6.8 % 06/18/21 11:59 Perkins % (Auto) 3.1 % 06/18/21 11:59 Eos % (Auto) 0.9 % 06/18/21 11:59 Baso % (Auto) 0.3 % 06/18/21 11:59 Neut # (Auto) 16.16 K/uL (1.4-6.5) H 06/18/21 11:59 Lymph # (Auto) 1.24 K/uL (1.2-3.4) 06/18/21 11:59 Perkins # (Auto) 0.56 K/uL (0.11-0.59) 06/18/21 11:59 Eos # (Auto) 0.17 K/uL (0-0.5) 06/18/21 11:59 Baso # (Auto) 0.06 K/uL (0-0.2) 06/18/21 11:59 Immature Gran # (Auto) 0.06 K/uL (0.00-0.02) H 06/18/21 11:59 PT 10.2 Seconds (9.0-12.0) 06/18/21 11:59 INR 1.0 (0.9-1.1) 06/18/21 11:59 APTT 30.9 Seconds (21.0-31.0) 06/18/21 11:59 PTT Ratio 1.2 06/18/21 11:59 POC Sodium 131 mmol/L (135-144) L 06/18/21 12:12 Sodium 129 mmol/L (136-145) L 06/18/21 11:59 POC Potassium 7.6 mmol/L (3.3-5.0) H* 06/18/21 12:12 Potassium 7.5 mmol/L (3.5-5.1) H* 06/18/21 11:59 POC Chloride 101 mmol/L (101-112) 06/18/21 12:12 Chloride 97 mmol/L (98-107) L 06/18/21 11:59 Carbon Dioxide 19 mmol/L (21-32) L 06/18/21 11:59 POC Total CO2 19 mmol/L (24-31) L 06/18/21 12:12 Anion Gap 14.0 (3-11) H 06/18/21 11:59 POC Anion Gap 20.0 mmol/L (16-25) 06/18/21 12:12 POC BUN 91 mg/dl (7-18) H 06/18/21 12:12 BUN 87 mg/dl (7-18) H 06/18/21 11:59 Creatinine 13.90 mg/dl (0.6-1.4) H* 06/18/21 11:59 POC Creatinine 15.2 mg/dl (0.6-1.3) H* 06/18/21 12:12 Est Cr Clr Drug Dosing 6.0 ml/min 06/18/21 11:59 Est GFR ( Amer) 3.9 ml/min 06/18/21 11:59 Est GFR (Non-Af Amer) 3.4 ml/min 06/18/21 11:59 BUN/Creatinine Ratio 6.3 (10-20) L 06/18/21 11:59 Glucose 144 mg/dl (70-99) H 06/18/21 11:59 POC Glucose (other) 144 mg/dl (70-99) H 06/18/21 12:12 Lactate 1.2 mmol/L (0.4-2.0) 06/18/21 12:05 Calcium 8.2 mg/dl (8.5-10.1) L 06/18/21 11:59 POC Ioniz Calcium Ramonita 0.97 mmol/l (1.12-1.32) L 06/18/21 12:12 Magnesium 2.4 mg/dl (1.8-2.4) 06/18/21 11:59 Total Bilirubin 0.4 mg/dl (0.2-1) 06/18/21 11:59 AST 4 U/L (15-37) L 06/18/21 11:59 ALT 10 U/L (12-78) L 06/18/21 11:59 Alkaline Phosphatase 124 U/L (45-117) H 06/18/21 11:59 Troponin I < 0.015 ng/ml (0-0.045) 06/18/21 11:59 Total Protein 8.4 gm/dl (6.4-8.2) H 06/18/21 11:59 Albumin 3.5 gm/dl (3.4-5.0) 06/18/21 11:59 Globulin 4.9 gm/dl (2.5-4.0) H 06/18/21 11:59 Albumin/Globulin Ratio 0.7 (0.9-2) L 06/18/21 11:59 Procalcitonin 0.44 ng/ml (0-0.5) 06/18/21 11:59 COVID-19 Eval Order Covid19 at [facility] 06/18/21 11:30 SARS-CoV-2 (PCR) NEGATIVE (Negative) 06/18/21 11:30 Influ A Molecular Assay Negative (Negative) 06/18/21 11:30 Influ B Molecular Assay Negative (Negative) 06/18/21 11:30 Impressions Chest X-Ray 06/18/21 10:51 XR chest 1V portable INDICATION: MN ^SEPSIS . TECHNIQUE: Single frontal radiograph of the chest was obtained. Comparison: None available at the time of this dictation. FINDINGS: No lines and tubes are seen. The cardiomediastinal silhouette is normal. There is prominence and cephalization of the vasculature. There is an ill-defined airspace opacity in the left lower lung. No evidence of pleural effusion or pneumothorax. IMPRESSION: 1. Mild pulmonary edema. 2. Left lower lung airspace opacity which may represent atelectasis, pneumonia, and/or aspiration. ACT 112: Negative or not required by law. Electronically signed by: Tobi Alejo M.D. 06/18/2021 11:52 AM PG Care Time/CCT Total # of Minutes Spent Total Time Spent with Patient: Total time spent is greater than 50% in coordination of care (as documented) at patient's floor/unit and/or counseling patient: Coding Level of Care Code 82715 Initial Inpt Care Lvl 3 Diagnoses Diabetes E11.9 HTN (hypertension) I10 ESRD on dialysis N18.6; Z99.2 Sepsis A41.9 Hyperkalemia E87.5
[2021-06-18] MEDS: ALBUMIN 25% 12.5 GM/50 ML VIAL IV SCH ×3 (14:34→15:59)
[2021-06-18 14:49] LABS: Hepatitis B Surface Ab Quant 3.26 mIU/mL (>or=10mIU/mL Immune); Hepatitis B Surface Antibody Non-Immune
[2021-06-18 15:00] LABS: Hepatitis B Surf Ag Rflx Conf Neg (Neg)
--- NOTE | 2021-06-18 16:03 | Electrocardiogram Report ---
Test Reason : Blood Pressure : / mmHG Vent. Rate : 185 BPM Atrial Rate : 185 BPM P-R Int : 172 ms QRS Dur : 170 ms QT Int : 166 ms P-R-T Axes : 005 -59 000 degrees QTc Int : 291 ms Sinus tachycardia Prominent T wave amplitude Left axis deviation Right bundle branch block Abnormal ECG No previous ECGs available Confirmed by Demetrio Miller ([id number]) on 06/18/2021 4:03:19 PM Referred By: Confirmed By:Demetrio Miller
--- NOTE | 2021-06-18 18:38 | Nephrology Consultation ---
Date of Consultation June 18, 2021 Assessment & Plan (1) Acute hyperkalemia: Medical management including Kayexalate and sodium bicarbonate provided in ER. EKG without acute changes. 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 Orders for urgent HD coordinated with dialysis nurse. Low potassium diet. (2) Encounter for hemodialysis for ESRD: Orders for urgent HD entered into EMR. Plan next treatment tomorrow. Midodrine with HD PRN for intradialytic hypotension. EDW 77 kg. UF goal tonight 1-2 L as tolerated. Case management consulted to assist with outpatient HD arrangements. (3) HTN (hypertension): Maintained on bisoprolol as outpatient. BP acceptable. 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 History of Present Illness Reason for Consultation: ESRD Requesting Physician: Dr. Gordon Attending Physician: Dr. Gordon History of Present Illness Mr. Jose Camacho is a 60-year-old male from [facility] with ESRD. He dialyzes twice weekly on Friday and . Records indicate that the patient has refused more frequent HD despite a history of significant IDWG. Dialysis is performed using a left RC AVF with 16 g needles. Records indicate a history of intradialytic hypotension which has been managed with PRN midodrine. Medical history also notable for hypertension, diabetes mellitus, interstitial lung disease. Jose reports the cause of his ESRD is "too much of the bad things: smoking, sugar." HD Rx is 4 hours on a 210 polyflux with a 2 K bath. Heparin 1000 units loading and 500 units per hour. EDW 77 kg. Records from the patient's HD unit were reviewed in detail today. Jose is visiting family in [place]. His last dialysis treatment was . He is planning to stay in [place] through July 22. Records include a recent dobutamine myoview and 2d echo. Jose traveled to the area without arrangements for hemodialysis. He presented to the local [facility] facility today and was referred to the ER. I was contacted by Dr. Fisher earlier today. Medical management for hyperkalemia was provided. Jose was admitted for emergent hemodialysis. The patient was seen in the ER and I provided follow up evaluation in the ICU this evening. Orders for emergent HD w ere reviewed with the dialysis nurse today. Hepatitis B sAg negative. Completed first cycle of vaccine. Last dose in April. He has been vaccinated for COVID. Allergies Allergy/AdvReac Type Severity Reaction Status Date / Time No Known Allergies Allergy Unverified 06/18/21 12:50 Home Medications Medication Instructions Recorded Confirmed Type bisoprolol fumarate 5 mg tablet 2.5 mg PO DAILY 06/18/21 06/18/21 History fluticasone fur. 100 mcg-umeclid 1 inh INHALATION DAILY 06/18/21 06/18/21 History 62.5 mcg-vilant 25 mcg inhalat.powder (Trelegy Ellipta) gabapentin 400 mg capsule 400 mg PO HS 06/18/21 06/18/21 History gel base no.102 (bulk) (Carbomer 1 ea MISCELLANEOUS HS 06/18/21 06/18/21 History Gel-Aqueous) iron fum-vit C-B complex-FA 29 1 tab PO DAILY 06/18/21 06/18/21 History mg-800 mcg tablet (DIALYVITE 800 with Iron) linagliptin 5 mg tablet 5 mg PO DAILY 06/18/21 06/18/21 History Patient History Medical History Diabetes ESRD on dialysis HTN (hypertension) No pertinent family history Surgical History (Updated 06/18/21 @ 18:33 by Krystian Ibanez DO) AVF (arteriovenous fistula) Social History Smoking Status: Current every day smoker Feels Safe at Home: Yes Review of Systems Review of Systems: All systems reviewed & are unremarkable except as noted in HPI & below Physical Exam Constitutional: well developed; no acute distress Eyes: no scleral abnormality and no corneal abnormality ENMT: Mouth: no oral mucosal abnormality and oral mucous membranes not dry Neck: normal visual inspection and trachea midline Respiratory: normal respiratory effort Auscultation: lungs clear to auscul tation bilaterally Cardiovascular: Rate/Rhythm: regular rate Heart Sounds: normal S1 and normal S2 Extremities: + pedal edema and + AV fistula Musculoskeletal: Extremities: no cyanosis and no clubbing Skin: normal turgor; no lesions Neurologic: Motor/Sensory: no tremor and no asterixis Psychiatric: Orientation: alert and oriented x 3 Results & Data ([facility]) Vital Signs (Past 12 Hours) Vital Signs Temp Pulse Pulse Resp BP Pulse Ox 06/18/21 18:00 86 18 116/58 L 96 06/18/21 17:45 86 27 H 113/57 L 96 06/18/21 17:30 88 30 H 127/65 97 06/18/21 17:15 88 26 H 127/62 96 06/18/21 17:00 89 16 95/50 L 96 06/18/21 16:45 89 15 94/52 L 96 06/18/21 16:30 93 H 19 118/60 96 06/18/21 16:15 90 16 101/56 L 97 06/18/21 16:00 90 17 131/63 97 06/18/21 15:45 88 16 101/50 L 98 06/18/21 15:30 90 17 123/58 L 97 06/18/21 15:15 89 18 115/52 L 95 06/18/21 15:00 92 H 18 122/57 L 96 06/18/21 14:51 91 H 22 91/48 L 97 06/18/21 14:47 91 H 17 74/41 L 95 06/18/21 14:45 91 H 17 77/43 L 95 06/18/21 14:39 37.2 C 06/18/21 14:30 94 H 17 93/49 L 94 06/18/21 14:28 88 L 06/18/21 14:15 96 H 14 91/41 L 98 06/18/21 14:00 98 H 25 H 103/58 L 93 06/18/21 13:45 89 24 79/41 L 100 06/18/21 13:30 93 H 26 H 84/45 L 99 06/18/21 13:14 87 26 H 89/45 L 100 06/18/21 13:12 88 21 79/44 L 100 06/18/21 13:00 88 21 89/49 L 100 06/18/21 12:46 90 22 91 06/18/21 12:21 93 H 21 112/61 93 06/18/21 11:22 93 H 23 135/73 93 06/18/21 10:40 38 C H 95 H 22 182/79 H 95 Laboratory Results Laboratory Results - last 24 hr 06/18/21 06/18/21 06/18/21 11:30 11:30 11:30 WBC RBC Hgb POC Hgb Hct POC Hct MCV MCH MCHC RDW Std Deviation RDW Coeff of Elzbieta Plt Count MPV Immature Gran % (Auto) Neut % (Auto) Lymph % (Auto) Stanton % (Auto) Eos % (Auto) Baso % (Auto) Neut # (Auto) Lymph # (Auto) Stanton # (Auto) Eos # (Auto) Baso # (Auto) Immature Gran # (Auto) PT INR APTT PTT Ratio POC Sodium Sodium POC Potassium Potassium POC Chloride Chloride Carbon Dioxide POC Total CO2 Anion Gap POC Anion Gap POC BUN BUN Creatinine POC Creatinine Est Cr Clr Drug Dosing Est GFR ( Amer) Est GFR (Non-Af Amer) BUN/Creatinine Ratio Glucose POC Glucose POC Glucose (other) Lactate Calcium POC Ioniz Calcium Ramonita Magnesium Total Bilirubin AST ALT Alkaline Phosphatase Troponin I Total Protein Albumin Globulin Albumin/Globulin Ratio Procalcitonin COVID-19 Eval Order Covid19 at [facility] SARS-CoV-2 (PCR) NEGATIVE Hep Bs Antigen Hep Bs Antibody Hep Bs Antibody, Quant Influ A Molecular Assay Negative Influ B Molecular Assay Negative 06/18/21 06/18/21 06/18/21 11:59 11:59 11:59 WBC 18.25 H RBC 3.57 L Hgb 10.9 L POC Hgb Hct 33.6 L POC Hct MCV 94.1 MCH 30.5 MCHC 32.4 RDW Std Deviation 59.3 H RDW Coeff of Elzbieta 17.4 H Plt Count 576 H MPV 8.8 Immature Gran % (Auto) 0.3 Neut % (Auto) 88.6 Lymph % (Auto) 6.8 Stanton % (Auto) 3.1 Eos % (Auto) 0.9 Baso % (Auto) 0.3 Neut # (Auto) 16.16 H Lymph # (Auto) 1.24 Stanton # (Auto) 0.56 Eos # (Auto) 0.17 Baso # (Auto) 0.06 Immature Gran # (Auto) 0.06 H PT INR APTT PTT Ratio POC Sodium Sodium 129 L POC Potassium Potassium 7.5 H* POC Chloride Chloride 97 L Carbon Dioxide 19 L POC Total CO2 Anion Gap 14.0 H POC Anion Gap POC BUN BUN 87 H Creatinine 13.90 H* POC Creatinine Est Cr Clr Drug Dosing 6.0 Est GFR ( Amer) 3.9 Est GFR (Non-Af Amer) 3.4 BUN/Creatinine Ratio 6.3 L Glucose 144 H POC Glucose POC Glucose (other) Lactate Calcium 8.2 L POC Ioniz Calcium Ramonita Magnesium 2.4 Total Bilirubin 0.4 AST 4 L ALT 10 L Alkaline Phosphatase 124 H Troponin I < 0.015 Total Protein 8.4 H Albumin 3.5 Globulin 4.9 H Albumin/Globulin Ratio 0.7 L Procalcitonin 0.44 COVID-19 Eval Order SARS-CoV-2 (PCR) Hep Bs Antigen Hep Bs Antibody Hep Bs Antibody, Quant Influ A Molecular Assay Influ B Molecular Assay 06/18/21 06/18/21 06/18/21 11:59 11:59 12:05 WBC RBC Hgb POC Hgb Hct POC Hct MCV MCH MCHC RDW Std Deviation RDW Coeff of Elzbieta Plt Count MPV Immature Gran % (Auto) Neut % (Auto) Lymph % (Auto) Stanton % (Auto) Eos % (Auto) Baso % (Auto) Neut # (Auto) Lymph # (Auto) Stanton # (Auto) Eos # (Auto) Baso # (Auto) Immature Gran # (Auto) PT 10.2 INR 1.0 APTT 30.9 PTT Ratio 1.2 POC Sodium Sodium POC Potassium Potassium POC Chloride Chloride Carbon Dioxide POC Total CO2 Anion Gap POC Anion Gap POC BUN BUN Creatinine POC Creatinine Est Cr Clr Drug Dosing Est GFR ( Amer) Est GFR (Non-Af Amer) BUN/Creatinine Ratio Glucose POC Glucose POC Glucose (other) Lactate 1.2 Calcium POC Ioniz Calcium Ramonita Magnesium Total Bilirubin AST ALT Alkaline Phosphatase Troponin I Total Protein Albumin Globulin Albumin/Globulin Ratio Procalcitonin COVID-19 Eval Order SARS-CoV-2 (PCR) Hep Bs Antigen Neg Hep Bs Antibody Non-Immune Hep Bs Antibody, Quant 3.26 L Influ A Molecular Assay Influ B Molecular Assay 06/18/21 06/18/21 12:12 14:55 WBC RBC Hgb POC Hgb 11.9 L Hct POC Hct 35 L MCV MCH MCHC RDW Std Deviation RDW Coeff of Elzbieta Plt Count MPV Immature Gran % (Auto) Neut % (Auto) Lymph % (Auto) Stanton % (Auto) Eos % (Auto) Baso % (Auto) Neut # (Auto) Lymph # (Auto) Stanton # (Auto) Eos # (Auto) Baso # (Auto) Immature Gran # (Auto) PT INR APTT PTT Ratio POC Sodium 131 L Sodium POC Potassium 7.6 H* Potassium POC Chloride 101 Chloride Carbon Dioxide POC Total CO2 19 L Anion Gap POC Anion Gap 20.0 POC BUN 91 H BUN Creatinine POC Creatinine 15.2 H* Est Cr Clr Drug Dosing Est GFR ( Amer) Est GFR (Non-Af Amer) BUN/Creatinine Ratio Glucose POC Glucose 188 H POC Glucose (other) 144 H Lactate Calcium POC Ioniz Calcium Ramonita 0.97 L Magnesium Total Bilirubin AST ALT Alkaline Phosphatase Troponin I Total Protein Albumin Globulin Albumin/Globulin Ratio Procalcitonin COVID-19 Eval Order SARS-CoV-2 (PCR) Hep Bs Antigen Hep Bs Antibody Hep Bs Antibody, Quant Influ A Molecular Assay Influ B Molecular Assay PG Care Time/CCT Total # of Minutes Spent Total Time Spent with Patient: Total time spent is greater than 50% in coordination of care (as documented) at patient's floor/unit and/or counseling patient: Coding Level of Care Code 33075 Inpt Consult Level 5 Diagnoses Acute hyperkalemia E87.5 Encounter for hemodialysis for ESRD N18.6; Z99.2 HTN (hypertension) I10
[2021-06-18] MEDS ORDERED: SODIUM CHLORIDE 0.9% 1000ML 1,000 ML IV PRN (18:39)
[2021-06-18] MEDS ORDERED: MIDODRINE HCL 2.5 MG TAB PO PRN (18:39)
[2021-06-18] MEDS ORDERED: HEPARIN SOD (PORCINE) 1000 UNIT/ML IV ONE (18:39)
[2021-06-18] MEDS ORDERED: CARBOHYDRATES FOR HYPOGLYCEMIA PO PRN (18:43)
[2021-06-18] MEDS ORDERED: GLUCOSE 10 TABS/TUBE PO PRN (18:43)
[2021-06-18] MEDS ORDERED: GLUCOSE 40% GEL 15 GM TUBE PO PRN (18:43)
[2021-06-18] MEDS ORDERED: GLUCAGON FOR INJ 1 MG VIAL SQ PRN (18:43)
[2021-06-18] MEDS ORDERED: DEXTROSE 50% 50 ML SYRINGE IV PRN (18:43)
[2021-06-18] MEDS ORDERED: ACETAMINOPHEN 325 MG TAB PO PRN (18:43)
[2021-06-18] MEDS ORDERED: ONDANSETRON INJ 2 MG/ML 2 ML VIAL IV PRN (18:43)
[2021-06-18] MEDS ORDERED: GABAPENTIN 400 MG CAP PO SCH (21:00)
[2021-06-18 21:38] LABS: BUN Creatinine Ratio 6.4 (10-20); Calcium 7.6 mg/dl (8.5-10.1); Creatinine Clr Calc Pharmacy 5.9 ml/min; Est GFR (African American) 3.8 ml/min; Est GFR (Non-African American) 3.2 ml/min; Potassium 5.6 mmol/L (3.5-5.1)
[2021-06-18] MEDS: INSULIN ASPART 100 UNITS/ML 3 ML PEN SC SCH ×2 (22:03→23:06)
[2021-06-18] MEDS: HEPARIN SOD 5,000 UNIT/0.5 ML VIAL SQ SCH (22:05)
[2021-06-19 05:13] LABS: Basophils # (auto) 0.03 K/uL (0-0.2); Basophils % (auto) 0.2 %; Eosinophils # (auto) 0.19 K/uL (0-0.5); Eosinophils % (auto) 1.2 %; Hematocrit (blood only) 28.9 % (42-52); Hemoglobin 9.1 g/dL (14.0-18.0); Immature Granulocytes # (auto) 0.05 K/uL (0.00-0.02); Immature Granulocytes % (auto) 0.3 %; Lymphocytes # (auto) 1.59 K/uL (1.2-3.4); Lymphocytes % (auto) 10.2 %; Mean Corpuscular Hemoglobin 30.1 pg (25-34); Mean Corpuscular Hgb Conc 31.5 g/dL (32-36); Mean Corpuscular Volume 95.7 fL (80-100); Mean Platelet Volume 8.7 fL (7.4-10.4); Monocytes # (auto) 0.52 K/uL (0.11-0.59); Monocytes % (auto) 3.3 %; Neutrophils # (auto) 13.27 K/uL (1.4-6.5); Neutrophils % (auto) 84.8 %; Platelet Count 478 K/uL (130-400); RDW Coefficient of Variation 17.3 % (11.5-14.5); RDW Standard Deviation 61.3 fL (36.4-46.3); Red Blood Count 3.02 M/uL (4.7-6.1); White Blood Count 15.65 K/uL (4.8-10.8)
[2021-06-19] MEDS: HEPARIN SOD 5,000 UNIT/0.5 ML VIAL SQ SCH ×2 (05:22→14:09)
[2021-06-19 05:51] LABS: BUN Creatinine Ratio 5.1 (10-20); Calcium 8.2 mg/dl (8.5-10.1); Est GFR (African American) 6.3 ml/min; Est GFR (Non-African American) 5.5 ml/min; Potassium 4.7 mmol/L (3.5-5.1)
[2021-06-19 07:31] LABS: Estimated Average Glucose 137 mg/dl; Hemoglobin A1C 6.4 % (4.5-5.6)
[2021-06-19] MEDS: INSULIN ASPART 100 UNITS/ML 3 ML PEN SC SCH ×3 (08:24→16:44)
[2021-06-19] MEDS ORDERED: FLUTICASONE FUROATE 100MCG 14 PUFFS/INHALER INH SCH (09:00)
[2021-06-19] MEDS ORDERED: NEPHROCAPS PO SCH (09:00)
[2021-06-19] MEDS ORDERED: UMECLIDINIUM/VILANTEROL 62.5/25MCG 7 PUFFS/INHALER INH SCH (09:00)
[2021-06-19] MEDS ORDERED: EPOETIN ALFA 10,000 UNITS/ML VIAL IV ONE (09:33)
[2021-06-19] MEDS ORDERED: LIDOCAINE/PRILOCAINE 2.5% EA CRM EXT ONE (09:34)
--- NOTE | 2021-06-19 09:34 | Nephrology Progress Note ---
Date of Service June 19, 2021 Assessment & Plan (1) Encounter for hemodialysis for ESRD: Plan: Orders for additional HD today entered into EMR and reviewed with dialysis nurse. Additional HD for clearance and UF. AVF functioning well. EMLA cream to be applied ~ 1 hr prior to treatment. Medications appropriately dosed for IHD. Care coordination consulted to assist with outpatient dialysis arrangements. (2) Acute hyperkalemia: Plan: Improved with HD and medical management yesterday. Low potassium diet. (3) HTN (hypertension): Plan: BP acceptable. Bisoprolol held. Volume status reasonable. Additional UF with HD today as tolerated. (4) Anemia: Plan: Epogen 58331 units with HD today. Admission and Anticipated Discharge Date Admission Date: June 18, 2021 Subjective No acute events overnight. Completed 2 hr HD treatment overnight without complications. Jose feels well this morning. Review of Systems Review of Systems: All systems reviewed & are unremarkable except as noted in HPI & below Physical Exam Constitutional: well developed; no acute distress Eyes: no scleral abnormality and no corneal abnormality ENMT: Mouth: no oral mucosal abnormality and oral mucous membranes not dry Neck: normal visual inspection and trachea midline Respiratory: normal respiratory effort Auscultation: lungs clear to auscultation bilaterally Cardiovascular: Rate/Rhythm: regular rate Heart Sounds: normal S1 and normal S2 Extremities: + edema and + AV fistula Musculoskeletal: Extremities: no cyanosis and no clubbing Skin: normal turgor; no lesions Neurologic: Motor/Sensory: no tremor and no asterixis Psychiatric: Orientation: alert and oriented x 3 Results & Data ([facility]) Vital Signs (Past 12 Hours) Vital Signs Temp Pulse Pulse Resp BP BP Pulse Ox 06/19/21 06:30 17 06/19/21 06:03 76 17 110/57 L 06/19/21 06:00 18 06/19/21 05:48 75 16 126/57 L 92 06/19/21 05:33 77 18 118/56 L 92 06/19/21 05:30 18 06/19/21 05:18 76 17 135/65 93 06/19/21 05:03 80 19 120/62 95 06/19/21 05:00 18 06/19/21 04:48 78 19 128/59 L 06/19/21 04:33 78 19 113/59 L 06/19/21 04:30 18 92 06/19/21 04:18 76 15 99/47 L 91 06/19/21 04:03 74 15 95/44 L 91 06/19/21 04:00 18 92 06/19/21 03:48 76 14 101/46 L 91 06/19/21 03:33 80 15 127/65 94 06/19/21 03:30 18 92 06/19/21 03:18 84 17 128/64 93 06/19/21 03:03 80 24 111/65 95 06/19/21 03:00 18 92 06/19/21 02:48 82 23 105/56 L 95 06/19/21 02:33 81 16 106/59 L 95 06/19/21 02:30 16 95 06/19/21 02:18 81 17 121/63 97 06/19/21 02:03 84 17 121/63 95 06/19/21 02:00 16 95 06/19/21 01:48 81 17 112/55 L 94 06/19/21 01:33 78 16 111/53 L 98 06/19/21 01:30 16 95 06/19/21 01:18 81 15 101/57 L 97 06/19/21 01:03 80 15 110/53 L 97 06/19/21 01:00 16 95 06/19/21 00:48 82 16 104/57 L 97 06/19/21 00:33 81 15 115/55 L 97 06/19/21 00:30 16 95 06/19/21 00:18 82 14 97/52 L 97 06/19/21 00:03 85 13 116/56 L 98 06/19/21 00:00 85 18 97 06/18/21 23:48 90 13 114/57 L 96 06/18/21 23:33 87 14 102/52 L 96 06/18/21 23:18 84 14 87/49 L 96 06/18/21 23:13 37.5 C 06/18/21 23:03 85 14 97/51 L 96 06/18/21 23:00 18 97 06/18/21 22:48 88 15 109/54 L 93 06/18/21 22:34 85 15 138/66 100 06/18/21 22:30 18 97 06/18/21 22:19 87 18 106/61 97 06/18/21 22:10 36.7 C 76 121/60 06/18/21 22:03 85 20 138/62 99 06/18/21 22:00 18 97 06/18/21 21:48 78 19 121/62 97 PG Care Time/CCT Total # of Minutes Spent Total Time Spent with Patient: Total time spent is greater than 50% in coordinat ion of care (as documented) at patient's floor/unit and/or counseling patient: Coding Level of Care Code 44519 Subseq Hosp Care Lvl 3 Diagnoses Acute hyperkalemia E87.5 Encounter for hemodialysis for ESRD N18.6; Z99.2 HTN (hypertension) I10 Anemia D64.9
[2021-06-19 10:05] LABS: Appearance Urine Clear (Clear); Bacteria Urine Automated Negative (Negative); Bilirubin Urine Negative (Negative); Blood Urine Negative (Negative); Cast Urine Automated 0 /lpf (0-5); Color Urine Yellow; Epithelial Cell Urine Auto 0-5 /lpf (0-5); Glucose Urine UA 1+ (Negative); Ketones Urine Negative (Negative); Leukocyte Esterase Urine Negative (Negative); Nitrite Urine Negative (Negative); RBC Urine Automated 0-4 /hpf (0-4); Specific Gravity Urine 1.013 (1.000-1.030); Urobilinogen Urine Negative (Negative); pH Urine 8.5 (4.5-7.5)
[2021-06-19 10:12] LABS: Protein Urine 3+ (Negative)
--- NOTE | 2021-06-19 12:16 | Pharmacy Report ---
Pharmacy Abx Dose Short Note - Date of Service June 19, 2021 - Assessment & Plan Assessment * 60 year old M receiving VANCOMYCIN + CEFEPIME for treatment of empiric coverage of sepsis, possible pulmonary source * Pharmacy has been consulted to dose vancomycin * Day # 2 of antimicrobial therapy * Patient is ESRD on HD, prior h/o T2DM * Blood cx's pending, sputum cx was ordered however has not been collected * MRSA nasal swab negative, greatly reducing the likelihood of pulm MRSA infxn - but does not R/O other MRSA sources of infxn Plan Vancomycin * 2250mg (~25mg/kg) IV x 1 given yesterday afternoon * Patient received 2 hr HD session following this loading dose * Random level this AM 22mcg/mL * 3 hr HD session has been ordered for today * Will give 500mg dose x 1 today following HD and recheck level w/ AM labs tomorrow * Plan to check random AM levels to guide redosing. Plan to redose when level is b/w 15-20mcg/mL or anticipated to be so following HD session Pharmacy will continue to follow and will adjust dose/frequency as necessary. Thank you.
[2021-06-19] MEDS ORDERED: SODIUM CHLORIDE 0.9% 1000ML 1,000 ML IV PRN (12:57)
[2021-06-19] MEDS ORDERED: HEPARIN IV BOLUS 2,000 UNITS in SYRINGE 0 ML IV ONE (12:57)
[2021-06-19] MEDS ORDERED: CEFEPIME 500 MG in SYRINGE 0 ML IV SCH (14:00)
[2021-06-19] MEDS ORDERED: VANCOMYCIN HCL 500 MG in 0.9 % SODIUM CHLORIDE 100 ML IV ONE (15:00)
--- NOTE | 2021-06-19 15:54 | Discharge Summary ---
Date of Service June 19, 2021 Admission HPI Per Admitting Provider This is a 60-year-old male with past medical history of end-stage renal disease, gets dialysis Friday and Friday, type 2 diabetes, and hypertension that presents today requiring dialysis. Patient is pleasant good historian, somewhat limited interview secondary to language barrier. Patient is from [facility]. He typically at this hemodialysis on those 2 days noted above. He arrived in the country last . He told me that he did the fly with no issues and otherwise felt well. However he noted that he was having some low weakness that worsened over the past few days. Unfortunately, he was not aware of her dialysis is administered in this country and he did not get any treatment on Friday. Today on Friday, he presented to [facility] and requested that he be given dialysis. 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 In the emergency room, he was found to be hypotensive, down into the high 70s systolic. He is a mildly hypoxic at 93%. He did respond to a 500 cc bolus of fluids with blood pressure up to 103/58. Lab work revealed that he had a significantly elevated creatinine along with a K of 7.6. He does have EKG changes with broadly peaked T waves. He is Covid negative. Patient is awake and alert, he is a very pleasant and answers all questions appropriately to the best of his ability. He does exhibit a a slight, loose sounding cough but denies any chest pain, significant shortness of breath, abdominal pain, excessive edema, or palpitations, or really any other symptoms at this time. Principal Diagnosis End stage renal disease requiring dialysis Hyperkalemia Discharge Exam Constitutional WD/WN, vitals as above Respiratory normal respiratory effort, lungs clear to auscultation Cardiovascular RRR, no murmur, no edema Gastrointestinal (Abdomen) Inspection/Auscultation: abdomen normal to inspection and normal bowel sounds; abdomen not distended Percussion/Palpation: abdomen soft; abdomen nontender Skin no rashes, warm and dry (no areas of cellulitis) Neurologic moves all extremities and awake; not confused Psychiatric A+Ox3, euthymic affect Discharge Data Allergies Allergy/AdvReac Type Severity Reaction Status Date / Time No Known Allergies Allergy Unverified 06/23/21 17:59 Consultations 06/18/21 13:08 ED Decision to Admit Stat 06/18/21 14:26 Consult Nephrology Stat Hospital Course (1) Hyperkalemia: (2) Sepsis: (3) Diabetes: (4) HTN (hypertension): (5) ESRD on dialysis: Jose Camacho is a 60 year old male admitted overnight at [facility] from June 18-2020 due to end stage renal disease, hypotension and hyperkalemia requiring dialysis. He tolerated tolerated dialysis on both days during his inpatient stay. There is also concern for infection due to elevated white blood count, chest XR changes showing a possible pneumonia. He was started on empiric vancomycin and cefepime. MRSA nose swab negative therefore vancomycin subsequently discontinued. Recommended he stays until blood cultures negative after 48 hours. Due to low blood pressure bisoprolol was discontinued. Midodrine was prescribed for use with dialysis as he has previously required this in [facility]. It was recommended he stays to have dialysis set up as outpatient. Referrals were made for this but no guarantee can be made at this time for further outpatient dialysis sessions. Therefore he left against medical advice. He was advised to return to the ER in the case of an emergency. Total Time Total Time Spent Total Time Spent (In Minutes): 45 Discharge Plan Discharge Items Patient Disposition: Against Medical Advice Reason For Visit: ESRD, HYPERKALEMIA, SEPSIS Activity: Resume your previous activity Non-emergency contact: Time Recorder Follow-up/Referrals: Krystian Ibanez DO [Physician] - 08/24/21 11:00 am PCP,NO [Primary Care Provider] - [facility] Provider Instructions: You were observed overnight at [facility] from June 18- 2020 due to end stage renal disease with high potassium requiring dialysis. This was treated with dialysis during your inpatient stay. There is also concern for infection due to elevated white blood count and chest XR changes showing a possible pneumonia. Recommend continuing on antibiotics as prescribed for this. Due to low blood pressure recommend holding your bisoprolol. Midodrine has been prescribed as thi has been given to you in the past during dialysis session due to low blood pressure. It was recommended you stay to have dialysis set up as outpatient. Referral have been sent for this but no guarantee can be made at this time for further outpatient dialysis sessions. Therefore you are leaving against medical advice. Please return to the ER in the case of an emergency. Pending Studies at Discharge: Yes Stand-Alone Forms: [facility] [employer], Smoking Cessation Medications and DC Order Prescriptions: New amoxicillin-pot clavulanate [Augmentin] 500-125 mg tablet See Rx Instructions .ROUTE .COMPLEX Qty: 7 RF: 0 midodrine 5 mg tablet 5 mg PO TID PRN (Reason: low blood pressure during dialysis) Qty: 10 RF: 0 Continued gabapentin 400 mg Capsule 400 mg PO HS RF: 0 DIALYVITE 800 with Iron 29-800 mg-mcg Tablet 1 tab PO DAILY RF: 0 linagliptin 5 mg Tablet 5 mg PO DAILY RF: 0 Carbomer Gel-Aqueous Gel 1 ea miscellaneous HS RF: 0 Trelegy Ellipta 100-62.5-25 mcg Blister With Device 1 inh INHALATION DAILY RF: 0 Discontinued bisoprolol fumarate 5 mg Tablet 2.5 mg PO DAILY RF: 0 Discharge Orders: Left Against Medical Advice (Routine); Ordered 06/19/21 Ordered By: Roberto Schroeder Admission Data Admit Date/Time: 06/18/21 14:26 Attending Provider: Roberto Schroeder Admit Provider: Krunal Gordon Primary Care Provider: PCP,NO Other Providers: Krystian Ibanez ; Krunal Gordon Other Interventions: Discharge Summary Assessment (RN) Last Done: 06/19/21 17:53 Coding Level of Care Code D/C DAY MANAGEMENT >30 MINS Diagnoses Hyperkalemia E87.5 Sepsis A41.9 Diabetes E11.9 HTN (hypertension) I10 ESRD on dialysis N18.6; Z99.2
== END 2021-06-19 18:10 | disposition left against medical advice (07) | DRG 871 ==
LOC: EDBD → ED 10:36 → SUATTDRO 14:26 → 1E 14:26

== ENCOUNTER 2021-06-23 16:20 | Inpatient (IN) ==
--- NOTE | 2021-06-23 16:44 | Emergency Department Note ---
Impression & Plan Hyperkalemia Admission to ICU ED Provider Note HPI: The patient is a 60-year-old gentleman with history of hypertension, end-stage renal disease currently on dialysis, originally from [place] here visiting family, presents the emergency department requesting dialysis. Patient was actually just seen here at this hospital and discharged on the following a dialysis session. He states that he was attempting to schedule dialysis with multiple area of facilities without success secondary to his lack of insurance. He states he was willing to pay gil however this was unable to be arranged.Patient states that his session was getting backed up until possibly Friday but he has not had dialysis since this past Friday and was beginning to feel short of breath and weak and therefore presented to the emergency department for further evaluation. On arrival the patient's blood pressure is elevated at 185/90, he is saturating well on room air, he is not tachycardic, he is overall nontoxic-appearing on my initial assessment. ROS: - Pulmonary: Shortness of breath - General: Request for dialysis *10 point review systems was conducted and is otherwise negative unless stated above *Outpatient medications and allergy history reviewed PE: General: Alert, NAD HEENT: Normocephalic, atraumatic, trachea midline Eyes: Extraocular eye movement is intact, no scleral erythema Pulmonary: Slightly diminished bilaterally without crackles or wheezing Cardio: Regular rate and rhythm GI: Abdomen is soft, nontender : No suprapubic tenderness, no flank tenderness to palpation bilaterally MSK: No evidence of trauma or malformation of the extremities, no edema Skin: No evidence of rash Neuro: Alert, no focal deficits Psychiatric: Cooperative Order placed for cardiac monitoring, patient noted to be in Sinus rhythm with Normal rate ED Interventions: Calcium gluconate, sodium bicarbonate,Sublingual nitroglycerin, IV insulin, IV dextrose, albuterol nebulizer treatment, Veltressa EKG: - Time:1654 - Rate:93 - Rhythm:Sinus rhythm - Intervals:Within normal limits - ST changes:No ST elevation, no peak T waves Medical Decision Making: Patient presented to the emergency department requesting dialysis, he recently traveled here from [facility]. He was dialyzed on Friday, he was unable to make arrangements for outpatient dialysis. He presents today complaining of some shortness of breath. His lab work is consistent with his Chronic renal failure, he does have a potassium of 6.6, there are no acute changes on his EKG consistent with hyperkalemia. Patient was given hyperkalemia medications as above here in the ED. He was given a sublingual nitroglycerin given his complaint of shortness of breath with blood pressure elevation in the 180 systolic. He has not been hypoxic. Following the above medications on my reassessment he states that he feels improved, he is resting comfortably in bed and in no acute distress. His chest x-ray does show evidence of interstitial edema consistent with fluid overload. I discussed the above findings with on-call nephrology, Dr. Squires, Who contacted dialysis nursing staff and there is no one available to dialyze the patient tonight. Patient will be managed medically in the ICU at the request of nephrology and plan for dialyzing the patient tomorrow morning.I discussed the above findings with the on-call ICU attending physician, also discussed the above findings with the on-call hospitalist for [facility], Dr. Schroeder, patient will be admitted to the ICU for further care. Patient is in agreement to the above plan. * Diagnosis: Hyperkalemia, request for dialysis, end-stage renal disease * Disposition: Admission to ICU Critical care time: 35 min - Interpretation of diagnostic studies, time spent at the bedside, discussion with other physicians, management of acute hyperkalemia requiring IV medications for stabilization Niko Bustillos DO Emergency Medicine Past Med/Surg History Medical History (Updated 06/23/21 @ 19:02 by Niko Bustillos DO) Diabetes ESRD on dialysis HTN (hypertension) No pertinent family history Surgical History AVF (arteriovenous fistula) Social History Smoking Status: Never smoker Cigarettes Per Day: 20; Hx Alcohol Use: Yes Hx Substance Use: No Preferred Language: Dutch Communication Ability: Effective Education Rep Required: No Beliefs That Will Affect Care: None Current Living Situation: Family Feels Safe at Home: Yes Assistive Devices: None Allergies Allergies Allergy/AdvReac Type Severity Reaction Status Date / Time No Known Allergies Allergy Unverified 06/23/21 17:59 Home Meds Home Medications Medication Instructions Recorded Confirmed fluticasone fur. 100 mcg-umeclid 1 inh INHALATION DAILY 06/18/21 06/23/21 62.5 mcg-vilant 25 mcg inhalat.powder (Trelegy Ellipta) gabapentin 400 mg capsule 400 mg PO HS 06/18/21 06/23/21 gel base no.102 (bulk) (Carbomer 1 ea MISCELLANEOUS HS 06/18/21 06/23/21 Gel-Aqueous) iron fum-vit C-B complex-FA 29 1 tab PO DAILY 06/18/21 06/23/21 mg-800 mcg tablet (DIALYVITE 800 with Iron) linagliptin 5 mg tablet 5 mg PO DAILY 06/18/21 06/23/21 Previous Rx's Medication Instructions Recorded amoxicillin 500 mg-potassium See Rx Instructions .ROUTE 06/19/21 clavulanate 125 mg tablet .COMPLEX #7 tab (Augmentin) midodrine 5 mg tablet 5 mg PO TID PRN #10 tab 06/19/21 Results & Data (ED) Vital Signs Vital Signs - 24 hr 06/23/21 16:26 06/23/21 16:33 06/23/21 17:02 Temperature 36.5 C Temperature Source Temporal Artery Scan Pulse Rate 87 82 127 H Pulse Rate [Left Radial] Pulse Rate from SpO2 Sensor 79 Pulse Rhythm Regular Respiratory Rate 18 20 Respiratory Effort / Characteristics Respiratory Depth Normal Respiratory Pattern Blood Pressure 185/90 H 152/87 H Blood Pressure Mean 121 108 Pulse Oximetry 97 97 96 Oxygen Delivery Method Room Air Room Air Sepsis Recent Fever Within 48 Hours No Sepsis New/Unexplained Change in Mental Status No Sepsis Action Taken by Nursing No Action Required 06/23/21 17:06 06/23/21 18:00 06/23/21 18:44 Temperature Temperature Source Pulse Rate 72 Pulse Rate [Left Radial] 71 Pulse Rate from SpO2 Sensor 72 Pulse Rhythm Respiratory Rate 16 Respiratory Effort / Characteristics Non-Labored Non-Labored Spontaneous Respiratory Depth Normal Respiratory Pattern Regular Blood Pressure 157/97 H Blood Pressure Mean 117 Pulse Oximetry 98 99 Oxygen Delivery Method Room Air Room Air Sepsis Recent Fever Within 48 Hours Sepsis New/Unexplained Change in Mental Status Sepsis Action Taken by Nursing Laboratory Data Result diagrams: 06/23/21 16:45 06/23/21 16:45 Lab Results 06/23/21 06/23/21 Range/Units 16:45 16:45 WBC 9.97 (4.8-10.8) K/uL RBC 3.01 L (4.7-6.1) M/uL Hgb 9.1 L (14.0-18.0) g/dL Hct 28.9 L (42-52) % MCV 96.0 (80-100) fL MCH 30.2 (25-34) pg MCHC 31.5 L (32-36) g/dL RDW Std Deviation 58.0 H (36.4-46.3) fL RDW Coeff of Elzbieta 16.7 H (11.5-14.5) % Plt Count 441 H (130-400) K/uL MPV 8.7 (7.4-10.4) fL Immature Gran % (Auto) 1.2 % Neut % (Auto) 66.0 % Lymph % (Auto) 21.6 % Crosby % (Auto) 6.0 % Eos % (Auto) 4.3 % Baso % (Auto) 0.9 % Neut # (Auto) 6.58 H (1.4-6.5) K/uL Lymph # (Auto) 2.15 (1.2-3.4) K/uL Crosby # (Auto) 0.60 H (0.11-0.59) K/uL Eos # (Auto) 0.43 (0-0.5) K/uL Baso # (Auto) 0.09 (0-0.2) K/uL Immature Gran # (Auto) 0.12 H (0.00-0.02) K/uL Sodium 137 (136-145) mmol/L Potassium 6.6 H* (3.5-5.1) mmol/L Chloride 104 (98-107) mmol/L Carbon Dioxide 22 (21-32) mmol/L Anion Gap 11.0 (3-11) BUN 77 H (7-18) mg/dl Creatinine 13.00 H* (0.6-1.4) mg/dl Est Cr Clr Drug Dosing 6.4 ml/min Est GFR ( Amer) 4.2 ml/min Est GFR (Non-Af Amer) 3.6 ml/min BUN/Creatinine Ratio 5.9 L (10-20) Glucose 153 H (70-99) mg/dl Calcium 8.1 L (8.5-10.1) mg/dl Total Bilirubin 0.4 (0.2-1) mg/dl AST 6 L (15-37) U/L ALT 9 L (12-78) U/L Alkaline Phosphatase 76 (45-117) U/L Total Protein 7.1 (6.4-8.2) gm/dl Albumin 2.9 L (3.4-5.0) gm/dl Globulin 4.2 H (2.5-4.0) gm/dl Albumin/Globulin Ratio 0.7 L (0.9-2) Administered Medications Discontinued Medications Albuterol (Albuterol 0.083% Nebu Soln 3 Ml Vial) 2.5 mg NEB NOW STA Stop: 06/23/21 17:47 Last Admin: 06/23/21 18:44 Dose: 2.5 mg Documented by: [id number] Dextrose (Dextrose 50% 50 Ml Syringe) 50 ml IV NOW ONE Stop: 06/23/21 18:30 Last Admin: 06/23/21 18:41 Dose: 50 ml Documented by: [id number] Calcium Gluconate () 1,000 mg in 60 mls @ 240 mls/hr IV NOW STA Stop: 06/23/21 17:59 Last Admin: 06/23/21 18:01 Dose: 240 mls/hr Documented by: [id number] Insulin Human Regular (Novolin-R Insulin Per Unit Charge) 6 units IV NOW STA Stop: 06/23/21 18:28 Last Admin: 06/23/21 18:41 Dose: 6 units Documented by: [id number] Cosigned by: [id number] Nitroglycerin (Nitroglycerin Sl 0.4 Mg/Tab Tab) 0.4 mg SL NOW STA Stop: 06/23/21 16:53 Last Admin: 06/23/21 17:02 Dose: 0.4 mg Documented by: [id number] Sodium Bicarbonate (Sodium Bicarb 8.4% Inj 50 Meq/50 Ml Syr) 50 meq IV NOW STA Stop: 06/23/21 17:48 Last Admin: 06/23/21 18:01 Dose: 50 meq Documented by: [id number] Imaging Data Radiologist's Impression: Chest X-Ray 06/23/21 16:33 XR chest 1V portable CLINICAL HISTORY: Dyspnea COMPARISON STUDY: Chest radiograph June 18, 2021. FINDINGS: Lung volumes are normal. There is no pneumothorax or pleural effusion. Interstitial thickening and mild bilateral lower lung opacities have slightly improved since prior examination. Mild cardiomegaly is unchanged. IMPRESSION: Interstitial thickening and mild bilateral lower lung opacities which have slightly improved since prior exam. The findings favor pulmonary edema however an infectious process could appear similar. ACT 112: Negative or not required by law. Electronically signed by: Ruddy North M.D. 06/23/2021 5:07 PM Discharge Plan Visit Data Chief Complaint: Shortness of Breath/Dyspnea Stated Complaint: SOB, FATIGUE ED Provider: Niko Bustillos Discharge Problem: Hyperkalemia Forms Stand Alone Forms: My [facility] [place] Prescriptions Prescriptions: No Action gabapentin 400 mg Capsule 400 mg PO HS RF: 0 DIALYVITE 800 with Iron 29-800 mg-mcg Tablet 1 tab PO DAILY RF: 0 linagliptin 5 mg Tablet 5 mg PO DAILY RF: 0 Carbomer Gel-Aqueous Gel 1 ea miscellaneous HS RF: 0 Trelegy Ellipta 100-62.5-25 mcg Blister With Device 1 inh INHALATION DAILY RF: 0 amoxicillin-pot clavulanate [Augmentin] 500-125 mg tablet See Rx Instructions .ROUTE .COMPLEX Qty: 7 RF: 0 midodrine 5 mg tablet 5 mg PO TID PRN (Reason: low blood pressure during dialysis) Qty: 10 RF: 0 Referrals Referrals: PCP,NO [Primary Care Provider] -
[2021-06-23] MEDS ORDERED: NITROGLYCERIN SL 0.4 MG/TAB TAB SL STA (16:52)
[2021-06-23 16:54] LABS: Basophils # (auto) 0.09 K/uL (0-0.2); Basophils % (auto) 0.9 %; Eosinophils # (auto) 0.43 K/uL (0-0.5); Eosinophils % (auto) 4.3 %; Hematocrit (blood only) 28.9 % (42-52); Hemoglobin 9.1 g/dL (14.0-18.0); Immature Granulocytes # (auto) 0.12 K/uL (0.00-0.02); Immature Granulocytes % (auto) 1.2 %; Lymphocytes # (auto) 2.15 K/uL (1.2-3.4); Lymphocytes % (auto) 21.6 %; Mean Corpuscular Hemoglobin 30.2 pg (25-34); Mean Corpuscular Hgb Conc 31.5 g/dL (32-36); Mean Platelet Volume 8.7 fL (7.4-10.4); Neutrophils # (auto) 6.58 K/uL (1.4-6.5); Platelet Count 441 K/uL (130-400); RDW Coefficient of Variation 16.7 % (11.5-14.5); Red Blood Count 3.01 M/uL (4.7-6.1); White Blood Count 9.97 K/uL (4.8-10.8)
--- NOTE | 2021-06-23 17:08 | XRay Report ---
XR chest 1V portable CLINICAL HISTORY: Dyspnea COMPARISON STUDY: Chest radiograph June 18, 2021. FINDINGS: Lung volumes are normal. There is no pneumothorax or pleural effusion. Interstitial thicken ing and mild bilateral lower lung opacities have slightly improved since prior examination. Mild card iomegaly is unchanged. IMPRESSION: Interstitial thickening and mild bilateral lower lung opacities which have slightly impr kiko since prior exam. The findings favor pulmonary edema however an infectious process could appear similar. ACT 112: Negative or not required by law. Electronically signed by: Ruddy North M.D. 06/23/2021 5:07 PM
[2021-06-23 17:42] LABS: Albumin Globulin Ratio 0.7 (0.9-2); Albumin Level 2.9 gm/dl (3.4-5.0); BUN Creatinine Ratio 5.9 (10-20); Bilirubin,Total 0.4 mg/dl (0.2-1); Calcium 8.1 mg/dl (8.5-10.1); Creatinine Clr Calc Pharmacy 6.4 ml/min; Est GFR (African American) 4.2 ml/min; Est GFR (Non-African American) 3.6 ml/min; Globulin 4.2 gm/dl (2.5-4.0); Potassium 6.6 mmol/L (3.5-5.1); Total Protein 7.1 gm/dl (6.4-8.2)
[2021-06-23] MEDS ORDERED: CALCIUM GLUCONATE 1,000 MG/60 ML BAG IV STA (17:45)
[2021-06-23] MEDS ORDERED: ALBUTEROL 0.083% NEBU SOLN 3 ML VIAL NEB STA (17:46)
[2021-06-23] MEDS ORDERED: SODIUM BICARB 8.4% INJ 50 MEQ/50 ML SYR IV STA ×2 (17:47→23:18)
[2021-06-23] MEDS ORDERED: NovoLIN-R INSULIN PER UNIT CHARGE IV STA (18:27)
[2021-06-23] MEDS ORDERED: DEXTROSE 50% 50 ML SYRINGE IV ONE ×2 (18:29→23:18)
--- NOTE | 2021-06-23 18:57 | History & Physical Report ---
Date of Service June 23, 2021 Assessment & Plan (1) Acute hyperkalemia: Plan: Management given in ER consisting of calcium gluconate, insulin/dextrose, Veltassa Repeat BMP @ 9pm and repeat medical management overnight as needed Dialysis planned for tomorrow (2) Pulmonary edema: Plan: NPO overnight Management with dialysis tomorrow (3) ESRD on dialysis: Plan: Consult nephrology as above (4) Anemia: Plan: Appears to be at baseline presumably from his ESRD Monitor with CBC in AM (5) Diabetes: Plan: Consult pharmacy for glycemic control HbA1C not accurate in setting of ESRD (6) HTN (hypertension): Plan: Patient previously on bisoprolol but was discontinued due to hypotension. Current hypertension to be managed by dialysis but consider hydralazine PRN prior to this - will defer to ICU team. Plan: VTE Prophylaxis - heparin 5000 units SQ BID Diet - NPO pending improvement in potassium Disposition - admit to ICU Admission and Anticipated Discharge Date Admission Date: June 23, 2021 History of Present Illness Chief Complaint: Hyperkalemia, Shortness of breath Primary Care Provider: NO PCP Jose Merritt Nettles is a 60 year old male with end stage renal disease on dialysis who presents to the ER with worsening shortness of breath starting today. He is from [facility] but travelling to [place] to visit his son. He did not set up dialysis plans prior to travelling as he thought he would just have to turn up t o the dialysis center at [facility] as he has dialysis through [facility] in [facility] on Friday and Tuesdays. He was sent to the ER from [facility] and admitted here overnight on June 182020 due to not receiving his usual dialysis with associated shortness of breath and hyperkalemia (potassium 7.5). He received two dialysis sessions and then left against medical advice with no confirmed dialysis appointment in the outpatient settings. He reports not being accepted at [facility] but he is currently working with [facility] and potentially will have dialysis set up on Friday. Due to an elevated WBC with CXR changes possible of pneumonia and hypotension on admission he was also treated for bacterial pneumonia with IV vancomycin and cefepime during his inpatient stay and he was discharged on Augmentin. However procalcitonin was negative and CXR changes were most likely pulmonary edema. Fortunately blood cultures have subsequently been negative. He returns today due to increased shortness of breath while eating in a restaurant. In the emergency room, he is not hypoxic, potassium 6.6, blood pressure 157/97. Nephrology were contacted and recommended medical management for hyperkalemia with ICU admission with planned dialysis tomorrow. COVID test is pending at this time. Allergies Allergy/AdvReac Type Severity Reaction Status Date / Time No Known Allergies Allergy Unverified 06/23/21 17:59 Home Medications Medication Instructions Recorded Confirmed Type fluticasone fur. 100 mcg-umeclid 1 inh INHALATION DAILY 06/18/21 06/23/21 History 62.5 mcg-vilant 25 mcg inhalat.powder (Trelegy Ellipta) gabapentin 400 mg capsule 400 mg PO HS 06/18/21 06/23/21 History gel base no.102 (bulk) (Carbomer 1 ea MISCELLANEOUS HS 06/18/21 06/23/21 History Gel-Aqueous) iron fum-vit C-B complex-FA 29 1 tab PO DAILY 06/18/21 06/23/21 History mg-800 mcg tablet (DIALYVITE 800 with Iron) linagliptin 5 mg tablet 5 mg PO DAILY 06/18/21 06/23/21 History amoxicillin 500 mg-potassium See Rx Instructions .ROUTE 06/19/21 06/23/21 Rx clavulanate 125 mg tablet .COMPLEX #7 tab (Augmentin) midodrine 5 mg tablet 5 mg PO TID PRN #10 tab 06/19/21 06/23/21 Rx Past Med/Surg History Medical History Diabetes AODM > 20 years ESRD on dialysis HD started 09/24 HTN (hypertension) No pertinent family history Surgical History AVF (arteriovenous fistula) L RC AVF Social History Smoking Status: Never smoker Cigarettes Per Day: 20; Hx Alcohol Use: Yes Hx Substance Use: No Preferred Language: Pashto Communication Ability: Effective Pool Servicer Required: No Beliefs That Will Affect Care: None Current Living Situation: Family Feels Safe at Home: Yes Assistive Devices: None Review of Systems Review of Systems: All systems reviewed & are unremarkable except as noted in HPI & below Respiratory: + cough and + dyspnea Physical Exam Constitutional: well developed; no acute distress Eyes: + anicteric sclerae; normal pupil size ENMT: Mouth: no oral mucosal abnormality and oral mucous membranes not dry Neck: normal visual inspection and trachea midline Respiratory: normal respiratory effort and + uses accessory muscles Auscultation: + crackles (fine bibasal); no diminished lung sounds and no wheezes Cardiovascular: Rate/Rhythm: regular rate Heart Sounds: normal S1 and normal S2 Extremities: + edema (trace pre-tibial b/l equal) and + AV fistula Gastrointestinal (Abdomen): normal bowel sounds, soft, nontender, no hepatosplenomegaly Musculoskeletal: no cyanosis or clubbing, extremities motor strength 5/5 Skin: no rashes, warm and dry normal turgor Neurologic: moves all extremities and awake; not confused Motor/Sensory: no tremor and no asterixis Psychiatric: A+Ox3, euthymic affect Results & Data Results & Data ([facility]) Vital Signs (Past 12 Hours) Vital Signs Temp Pulse Pulse Resp BP Pulse Ox 06/23/21 18:44 71 16 99 06/23/21 18:00 72 157/97 H 98 06/23/21 17:02 127 H 152/87 H 96 06/23/21 16:33 82 20 97 06/23/21 16:26 36.5 C 87 18 185/90 H 97 Laboratory Results Abnormal lab results 06/23/21 06/23/21 Range/Units 16:45 16:45 RBC 3.01 L (4.7-6.1) M/uL Hgb 9.1 L (14.0-18.0) g/dL Hct 28.9 L (42-52) % MCHC 31.5 L (32-36) g/dL RDW Std Deviation 58.0 H (36.4-46.3) fL RDW Coeff of Elzbieta 16.7 H (11.5-14.5) % Plt Count 441 H (130-400) K/uL Neut # (Auto) 6.58 H (1.4-6.5) K/uL Alpine # (Auto) 0.60 H (0.11-0.59) K/uL Immature Gran # (Auto) 0.12 H (0.00-0.02) K/uL Potassium 6.6 H* (3.5-5.1) mmol/L BUN 77 H (7-18) mg/dl Creatinine 13.00 H* (0.6-1.4) mg/dl BUN/Creatinine Ratio 5.9 L (10-20) Glucose 153 H (70-99) mg/dl Calcium 8.1 L (8.5-10.1) mg/dl AST 6 L (15-37) U/L ALT 9 L (12-78) U/L Albumin 2.9 L (3.4-5.0) gm/dl Globulin 4.2 H (2.5-4.0) gm/dl Albumin/Globulin Ratio 0.7 L (0.9-2) Diagnostic Findings XR chest 1V portable CLINICAL HISTORY: Dyspnea COMPARISON STUDY: Chest radiograph June 18, 2021. FINDINGS: Lung volumes are normal. There is no pneumothorax or pleural effusion. Interstitial thickening and mild bilateral lower lung opacities have slightly improved since prior examination. Mild cardiomegaly is unchanged. IMPRESSION: Interstitial thickening and mild bilateral lower lung opacities which have slightly improved since prior exam. The findings favor pulmonary edema however an infectious process could appear similar. Medications Administered ER Medications Given: Nitroglycerin 0.4mg SL Calcium gluconate 1g IV Albuterol 2.5mg neb Sodium bicarb 50 meq IV Insulin 6 units IV Dextrose 50% 50 ml IV Veltassa 8.4g Code Status & VTE Plan Code Status Full PG Care Time/CCT Total # of Minutes Spent Total Time Spent with Patient: Total time spent is greater than 50% in coordination of care (as documented) at patient's floor/unit and/or counseling patient: Coding Level of Care Code 31813 Initial Inpt Care Lvl 3 Diagnoses Anemia D64.9 Acute hyperkalemia E87.5 Diabetes E11.9 HTN (hypertension) I10 ESRD on dialysis N18.6; Z99.2 Pulmonary edema J81.1
--- NOTE | 2021-06-23 19:21 | Nephrology Consultation ---
Date of Consultation June 23, 2021 Assessment & Plan (1) Hyperkalemia: * Medical management for hyperkalemia provided in EMD this evening * Will provide one dose IV Furosemide since patient still makes urine * Environmental Service Aide will admit to ICU and monitor serum K and cardiac rhythm over night (2) ESRD on dialysis: * Will schedule acute HD for 1st shift tomorrow am * Will leave message at [facility] HD unit and ask case management to facilitate outpatient HD scheduling (3) Anemia: * Will provide REGAN w/ HD tomorrow (4) Diabetes: (5) HTN (hypertension): History of Present Illness Reason for Consultation: ESRD, hyperkalemia, CHF History of Present Illness Mr. Camacho is a 60 year old male who is seen at the request of Dr. Bustillos for ESRD, hyperkalemia and CHF. 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 He was started on HD 09/24 and currently dialyzes Fri/ via L RC AVF. Mr. Camacho works in [employer] for one of the [employer]. He traveled to [place], [place] to visit his son who is in his 3rd year at [employer] studying engineering. Unfortunately outpatient HD has not yet been scheduled. Mr. Camacho was hospitalized 06/18 & 06/19 for acute dialysis. He returns this evening with mild dyspnea. Telemetry reveals NSR. scallop cutter machine dialysis services are not available this evening. Telephone consultation was held with [facility] director Paul Elizabeth RN. Medical management was advised. Mr. Camacho reports that he does still make urine. Plan of care discussed this evening w/ EMD physician and ICU attending. Ca, insulin, dextrose, bicarbonate and Patiromer have been provided. IV Furosemide has been ordered. Mr. Camacho will be admitted to the ICU for ongoing medical management. Allergies Allergy/AdvReac Type Severity Reaction Status Date / Time No Known Allergies Allergy Unverified 06/23/21 17:59 Home Medications Medication Instructions Recorded Confirmed Type fluticasone fur. 100 mcg-umeclid 1 inh INHALATION DAILY 06/18/21 06/23/21 History 62.5 mcg-vilant 25 mcg inhalat.powder (Trelegy Ellipta) gabapentin 400 mg capsule 400 mg PO HS 06/18/21 06/23/21 History gel base no.102 (bulk) (Carbomer 1 ea MISCELLANEOUS HS 06/18/21 06/23/21 History Gel-Aqueous) iron fum-vit C-B complex-FA 29 1 tab PO DAILY 06/18/21 06/23/21 History mg-800 mcg tablet (DIALYVITE 800 with Iron) linagliptin 5 mg tablet 5 mg PO DAILY 06/18/21 06/23/21 History amoxicillin 500 mg-potassium See Rx Instructions .ROUTE 06/19/21 06/23/21 Rx clavulanate 125 mg tablet .COMPLEX #7 tab (Augmentin) midodrine 5 mg tablet 5 mg PO TID PRN #10 tab 06/19/21 06/23/21 Rx Patient History Medical History Diabetes AODM > 20 years ESRD on dialysis HD started 09/24 HTN (hypertension) No pertinent family history Surgical History AVF (arteriovenous fistula) L RC AVF Social History Smoking Status: Never smoker Cigarettes Per Day: 20; Hx Alcohol Use: Yes Hx Substance Use: No Preferred Language: Slovenian Communication Ability: Effective Brim Blocker Required: No Beliefs That Will Affect Care: None Current Living Situation: Family Feels Safe at Home: Yes Assistive Devices: None Review of Systems Constitutional: no fever Eyes: no problem reported Ear, Nose, Mouth, Throat: no problem reported Respiratory: + dyspnea; no cough mild Cardiovascular: no chest pain, no palpitations and no edema Gastrointestinal: no abdominal pain, no nausea, no vomiting and no diarrhea/loose stools Genitourinary: no dysuria, no urinary hesitancy or no hematuria Musculoskeletal: no back pain Integumentary: no rash Neurologic: no falls, no dizziness and no confusion Physical Exam Constitutional: not in distress Eyes: PERRL, conjunctivae normal, anicteric sclerae ENMT: external ear and nose normal, oropharynx normal Neck: trachea midline, no thyromegaly Respiratory: normal respiratory effort and able to speak in complete sentences; no respiratory distress soft L basilar rales Cardiovascular: Rate/Rhythm: + tachycardic Heart Sounds: + murmur (systolic murmur at RUSB radiating to carotids) Gastrointestinal (Abdomen): Inspection/Auscultation: normal bowel sounds Neurologic: awake (alert, nonfocal) Results & Data ([facility]) Vital Signs (Past 12 Hours) Vital Signs Temp Pulse Pulse Resp BP Pulse Ox 06/23/21 19:00 18 177/80 H 94 06/23/21 18:44 71 16 99 06/23/21 18:00 72 157/97 H 98 06/23/21 17:02 127 H 152/87 H 96 06/23/21 16:33 82 20 97 06/23/21 16:26 36.5 C 87 18 185/90 H 97 Laboratory Results Laboratory Results - last 24 hr 06/23/21 06/23/21 16:45 16:45 WBC 9.97 RBC 3.01 L Hgb 9.1 L Hct 28.9 L MCV 96.0 MCH 30.2 MCHC 31.5 L RDW Std Deviation 58.0 H RDW Coeff of Elzbieta 16.7 H Plt Count 441 H MPV 8.7 Immature Gran % (Auto) 1.2 Neut % (Auto) 66.0 Lymph % (Auto) 21.6 [place] % (Auto) 6.0 Eos % (Auto) 4.3 Baso % (Auto) 0.9 Neut # (Auto) 6.58 H Lymph # (Auto) 2.15 [place] # (Auto) 0.60 H Eos # (Auto) 0.43 Baso # (Auto) 0.09 Immature Gran # (Auto) 0.12 H Sodium 137 Potassium 6.6 H* Chloride 104 Carbon Dioxide 22 Anion Gap 11.0 BUN 77 H Creatinine 13.00 H* Est Cr Clr Drug Dosing 6.4 Est GFR ( Amer) 4.2 Est GFR (Non-Af Amer) 3.6 BUN/Creatinine Ratio 5.9 L Glucose 153 H Calcium 8.1 L Total Bilirubin 0.4 AST 6 L ALT 9 L Alkaline Phosphatase 76 Total Protein 7.1 Albumin 2.9 L Globulin 4.2 H Albumin/Globulin Ratio 0.7 L PG Care Time/CCT Total # of Minutes Spent Total Time Spent with Patient: Total time spent is greater than 50% in coordination of care (as documented) at patient's floor/unit and/or counseling patient: Coding Level of Care Code 45620 Inpt Consult Level 5 Diagnoses Hyperkalemia E87.5 ESRD on dialysis N18.6; Z99.2 Diabetes E11.9 HTN (hypertension) I10 Anemia D64.9
[2021-06-23] MEDS ORDERED: FUROSEMIDE 40 MG/4 ML VIAL IV STA (19:32)
[2021-06-23] MEDS ORDERED: ICU PROTOCOL FOR HYPERGLYCEMIA PRN (22:13)
[2021-06-23] MEDS ORDERED: MIDODRINE HCL 2.5 MG TAB PO PRN (22:13)
[2021-06-23 22:56] LABS: BUN Creatinine Ratio 6.4 (10-20); Calcium 8.5 mg/dl (8.5-10.1); Creatinine Clr Calc Pharmacy 6.6 ml/min; Est GFR (African American) 4.4 ml/min; Est GFR (Non-African American) 3.8 ml/min; Potassium 5.8 mmol/L (3.5-5.1)
--- NOTE | 2021-06-23 22:56 | Critical Care Consultation ---
Date of Consultation June 23, 2021 Assessment & Plan (1) Admitted to intensive care unit: Reason Critically Ill: 60-year-old male with volume overload and hyperkalemia in the setting of missed hemodialysis requiring close monitoring for electrolyte correction and intervention in the event of decline in status. NEURO - * CAM ICU: NEGATIVE CARDIAC/VASCULAR - * Hypertension: * While this is seem to be contributory to the patient's renal disease, he does not appear to be on any antihypertensives at this time. In fact, the patient appears to take midodrine as needed for hypotension. * Monitor on telemetry. RESPIRATORY - * Pulmonary edema: * Likely secondary to volume overload from skipped hemodialysis. * Saturating well on room air at this time. * Addition of CPAP in the setting of increasing oxygen demand or worsening respiratory status. GI/NUTRITION - * N.p.o. overnight. * Prophylaxis: RENAL/LYTES - * Hyperkalemia: * Initially treated with Veltassa, insulin, dextrose, calcium gluconate, albuterol, and Lasix. * Repeat PRP upon arrival in the ICU. * Will treat ongoing hyperkalemia as needed. * Ultimately, patient will require early a.m. hemodialysis for volume overload and electrolyte correction. * Appreciate nephrology's management. - * Strict I&Os. ENDO - * Diabetes: * BSGs per unit protocol. ISS --> gtt per unit policy. HEME - * Anemia: * Likely anemia of chronic disease in the setting of ESRD. ID - * No concerns for infections contribution at this time. LINES/IV ACCESS - * PIVs x2 DVT PROPHYLAXIS - * SCDs I have personally spent 35 minutes of critical care time in the direct management of this patient. This is a life/limb threatening event. This includes time spent evaluating patient, direct bedside care, chart review, placing orders, interpretation of diagnostic studies, discussion with consultants, patient, and family members, as well as other required patient management activities. This time is exclusive of all separately billable procedures, and teaching time and separate from and in addition to any other critical care service time. Thank you for allowing us to participate in the care of this patient. Please refer to my attending physician's documentation for any further recommendations. (2) Pulmonary edema: (3) Encounter for hemodialysis for ESRD: (4) Acute hyperkalemia: (5) Anemia: (6) HTN (hypertension): (7) ESRD on dialysis: History of Present Illness Attending Physician: Roberto Schroeder MD History of Present Illness Patient is a 60-year-old male with past medical history of end-stage renal disease on hemodialysis, hypertension, and diabetes. Patient [place] from outside of the [place]. He has missed his scheduled dialysis and was recently admitted to this facility with need for dialysis. Patient's last dialysis treatment was on Friday. He did attempt to achieve hemodialysis at an outpatient clinic, but was declined. He was noted to be short of breath and hyperkalemic. Upon evaluation in the emergency department, the patient was nontoxic-appearing, however he was noted to have a potassium level of 6.6. The patient received corrective medications including calcium gluconate, albuterol, sodium bicarbonate, insulin, and dextrose. Nephrology was consulted and evaluated the patient at bedside. The patient received an additional dose of 80 mg IV Lasix as well as Veltassa. Patient has been hemodynamically stable otherwise. He is not requiring oxygen to this point. Pulmonary edema noted on chest x-ray. Patient to be admitted to the ICU for close monitoring with need for urgent hemodialysis first thing in the morning. Upon evaluation in the ICU, the patient is awake, alert, and oriented. He complains of some shortness of breath which she reports has slightly improved since arrival at this institution. Patient has experienced similar symptoms in the past when he is volume overloaded from missing dialysis. Otherwise, the patient offers no complaints at this time. Allergies Allergy/AdvReac Type Severity Reaction Status Date / Time No Known Allergies Allergy Unverified 06/23/21 17:59 Home Medications Medication Instructions Recorded Confirmed Type fluticasone fur. 100 mcg-umeclid 1 inh INHALATION DAILY 06/18/21 06/23/21 History 62.5 mcg-vilant 25 mcg inhalat.powder (Trelegy Ellipta) gabapentin 400 mg capsule 400 mg PO HS 06/18/21 06/23/21 History gel base no.102 (bulk) (Carbomer 1 ea MISCELLANEOUS HS 06/18/21 06/23/21 History Gel-Aqueous) iron fum-vit C-B complex-FA 29 1 tab PO DAILY 06/18/21 06/23/21 History mg-800 mcg tablet (DIALYVITE 800 with Iron) linagliptin 5 mg tablet 5 mg PO DAILY 06/18/21 06/23/21 History amoxicillin 500 mg-potassium See Rx Instructions .ROUTE 06/19/21 06/23/21 Rx clavulanate 125 mg tablet .COMPLEX #7 tab (Augmentin) midodrine 5 mg tablet 5 mg PO TID PRN #10 tab 06/19/21 06/23/21 Rx Patient History Medical History Diabetes AODM > 20 years ESRD on dialysis HD started 09/24 HTN (hypertension) No pertinent family history Surgical History AVF (arteriovenous fistula) L RC AVF Social History Smoking Status: Current every day smoker Cigarettes Per Day: 20; Second Hand Exposure: Yes; Hx Alcohol Use: Yes Alcohol type: hard liquor and other Hx Substance Use: No Preferred Language: Niuean Communication Ability: Effective Quantitative Strategy Analyst Required: No Beliefs That Will Affect Care: None Current Living Situation: Family Feels Safe at Home: Yes Assistive Devices: Glasses Review of Systems Review of Systems: A complete 10 point review of systems was reviewed with the patient with pertinent positives and negatives as per history of present illness. All else were negative. Physical Exam Physical Exam: VITAL SIGNS - Vital signs and nursing notes were reviewed. GENERAL - 60-year-old male appearing his stated age who is in no acute distress. Communicates well with provider and answers questions appropriately. SKIN - Without rashes. HEAD - NC/AT. EYES - PERRL with EOMI bilaterally. Sclera anicteric. EARS - No deformities of external structures noted on gross examination bilaterally. NOSE - Midline and without cyanosis. No epistaxis or purulent drainage noted. MOUTH/OROPHARYNX - Without perioral cyanosis. Buccal mucosa pink and moist. NECK - Neck with FROM. No nuchal rigidity. LUNGS - Chest wall symmetric without accessory muscle use, intercostals retractions, or central cyanosis. Normal vesicular breath sounds CTA B/L. No wheezes, rales, or rhonchi appreciated. CARDIAC - RRR with S1/S2. No murmur, rubs, or gallops appreciated. ABDOMEN - Abdominal contour flat without pulsations or visible masses. BS normoactive all four quadrants. No tenderness, palpable masses, hepatosplenomegaly, or ascites noted. EXTREMITIES - LUE fistula to the distal forearm w/ palpable thrill and audible bruit. No clubbing or peripheral cyanosis. No pretibial edema present. +3/5 radial dorsalis pedis pulses palpated throughout. +5/5 strength noted in UE/LE bilaterally. NEUROLOGIC - Cranial nerves II through XII grossly intact. PSYCH - A&Ox3 and cooperates fully with examiner. Pt is very pleasant and interacts well with examiner. Results & Data Results & Data ([facility]) Vital Signs (Past 12 Hours) Vital Signs Temp Pulse Pulse Resp BP Pulse Ox 06/23/21 22:06 70 16 157/80 H 98 06/23/21 21:00 77 14 136/83 96 06/23/21 20:00 86 13 159/68 H 98 06/23/21 19:00 18 177/80 H 94 06/23/21 18:44 71 16 99 06/23/21 18:00 72 157/97 H 98 06/23/21 17:02 127 H 152/87 H 96 06/23/21 16:33 82 20 97 06/23/21 16:26 36.5 C 87 18 185/90 H 97 Coding Level of Care Code Critical Care 1st 30-74 mins Diagnoses Admitted to intensive care unit Z78.9 Pulmonary edema J81.1 Encounter for hemodialysis for ESRD N18.6; Z99.2 Acute hyperkalemia E87.5 Anemia D64.9 HTN (hypertension) I10 ESRD on dialysis N18.6; Z99.2 Time Spent (min) 35
[2021-06-23] MEDS ORDERED: GABAPENTIN 400 MG CAP PO SCH (23:00)
[2021-06-23] MEDS ORDERED: INSULIN HUMAN REGULAR PER UNIT 6 UNITS in SYRINGE 5.94 ML IV STA (23:22)
[2021-06-23] MEDS ORDERED: CALCIUM GLUCONATE 10% 1,000 MG in SODIUM CHLORIDE 0.9% 50 ML IV ONE (23:30)
[2021-06-24] MEDS ORDERED: GLUCAGON FOR INJ 1 MG VIAL SQ PRN ×2 (01:19→09:18)
[2021-06-24] MEDS ORDERED: CARBOHYDRATES FOR HYPOGLYCEMIA PO PRN ×2 (01:19→09:18)
[2021-06-24] MEDS ORDERED: DEXTROSE 50% 50 ML SYRINGE IV PRN ×2 (01:19→09:18)
[2021-06-24] MEDS ORDERED: GLUCOSE 10 TABS/TUBE PO PRN ×2 (01:19→09:18)
[2021-06-24] MEDS ORDERED: GLUCOSE 40% GEL 15 GM TUBE PO PRN ×2 (01:19→09:18)
[2021-06-24 05:01] LABS: Hematocrit (blood only) 28.2 % (42-52); Mean Corpuscular Hemoglobin 29.8 pg (25-34); Mean Corpuscular Hgb Conc 31.9 g/dL (32-36); Mean Corpuscular Volume 93.4 fL (80-100); Mean Platelet Volume 8.9 fL (7.4-10.4); Platelet Count 426 K/uL (130-400); RDW Coefficient of Variation 16.7 % (11.5-14.5); RDW Standard Deviation 56.8 fL (36.4-46.3); Red Blood Count 3.02 M/uL (4.7-6.1); White Blood Count 10.85 K/uL (4.8-10.8)
[2021-06-24 05:57] LABS: BUN Creatinine Ratio 6.3 (10-20); Calcium 8.3 mg/dl (8.5-10.1); Creatinine Clr Calc Pharmacy 6.4 ml/min; Est GFR (African American) 4.2 ml/min; Est GFR (Non-African American) 3.6 ml/min; Magnesium 2.3 mg/dl (1.8-2.4); Phosphorus 7.3 mg/dl (2.5-4.9); Potassium 5.3 mmol/L (3.5-5.1)
[2021-06-24] MEDS ORDERED: HEPARIN SOD (PORCINE) 1000 UNIT/ML IV ONE (07:00)
[2021-06-24] MEDS ORDERED: EPOETIN ALFA 10,000 UNITS/ML VIAL IV ONE (07:00)
[2021-06-24] MEDS ORDERED: SODIUM CHLORIDE 0.9% 1000ML 1,000 ML IV PRN (07:00)
[2021-06-24] MEDS ORDERED: FLUTICASONE FUROATE 100MCG 14 PUFFS/INHALER INH SCH (09:00)
[2021-06-24] MEDS ORDERED: UMECLIDINIUM/VILANTEROL 62.5/25MCG 7 PUFFS/INHALER INH SCH (09:00)
[2021-06-24] MEDS ORDERED: NON-FORMULARY MEDICATION (Fluticasone-Umeclidin-Vilanter [Trelegy Ellipta] 100-62.5-25 mcg INH SCH (09:00)
[2021-06-24] MEDS ORDERED: PATIROMER CALCIUM SORBITEX 8.4 GM PACK PO SCH (09:00)
[2021-06-24] MEDS ORDERED: NEPHROCAPS PO SCH (09:00)
--- NOTE | 2021-06-24 09:03 | Critical Care Progress Note ---
Date of Service June 24, 2021 Assessment & Plan (1) Acute hyperkalemia: (2) Admitted to intensive care unit: (3) Pulmonary edema: (4) ESRD on dialysis: Plan: Reason Critically Ill: 60-year-old male with volume overload and hyperkalemia in the setting of missed hemodialysis requiring close monitoring for electrolyte correction and intervention in the event of decline in status. NEURO - CAM ICU: NEGATIVE CARDIAC/VASCULAR - History of hypertension: While this is seem to be contributory to the patient's renal disease, he does not appear to be on any antihypertensives at this time. In fact, the patient appears to take midodrine as needed for hypotension. Monitor on telemetry. RESPIRATORY - Pulmonary edema: Likely secondary to volume overload from skipped hemodialysis. Saturating well on room air at this time. Addition of CPAP in the setting of increasing oxygen demand or worsening respiratory status. --COPD Smokes 2 packs/day Continue with Anoro GI/NUTRITION - Cardiorenal diet RENAL/LYTES - Hyperkalemia: Initially treated with Patiromer, insulin, dextrose, calcium gluconate, albuterol, and Lasix. Will treat ongoing hyperkalemia as needed. - Strict I&Os. ENDO - Diabetes: BSGs per unit protocol. ISS --> gtt per unit policy. HEME - Anemia: Likely anemia of chronic disease in the setting of ESRD. ID - No concerns for infections contribution at this time. --Prophylaxis VTE: Heparin GI: None Lines: Peripheral Diet: Cardiorenal Plan: For hemodialysis today Patient is getting Patiromer on a daily basis. Potassium today is 5.3 Patient also has hyperphosphatemia. We will start him on sevelamer 3 times daily Nephrology on board 2D echo to look of ejection fraction as well as to rule out valvular abnormal ity. Patient can be sent to medical floor after hemodialysis Please note the above document was generated using voice recognition software. It may contain grammatical, syntax or spelling errors.Any formal questions or concerns about the content, text or information contained within the body of this dictation should be directly addressed to the provider for clarification. Admission and Anticipated Discharge Date Admission Date: June 23, 2021 Subjective Patient seen and examined at bedside. No acute distress, no acute events overnight. Patient does complain of mild shortness of breath. Denies any chest pain, no headache, no nausea, no vomiting. Has been n.p.o. We will start him on diet Review of Systems Review of Systems: All systems reviewed & are unremarkable except as noted in Subjective Physical Exam Physical Exam: Constitutional: No acute distress HEENT: EOMI, PERRLA Respiratory system: Decreased air entry bilaterally, no wheeze, rhonchi, positive crackles bilaterally CVS: S1-S2 positive, positive 3 out of 6 systolic murmur appreciated best at the aorta Abdomen: Soft, nontender, nondistended, positive bowel sounds x4 Extremities: +2 pulses bilaterally radialis/ dorsalis pedis, no cyanosis, no edema, left forearm fistula Neuro: Awake alert oriented x3 Psych: Normal mood and affect G/U: No Rodriguez Skin: no rashes, warm and dry Lymphatic: no cervical or axillary lymphadenopathy Results & Data Results & Data ([facility]) Vital Signs (Past 12 Hours) Vital Signs Temp Pulse Pulse Resp BP BP Pulse Ox 06/24/21 01:07 78 11 L 107/66 96 06/24/21 00:07 81 11 L 130/64 94 06/24/21 00:00 78 06/23/21 23:07 80 14 144/77 H 96 06/23/21 22:13 36.8 C 77 76 16 173/82 H 98 06/23/21 22:07 80 14 173/82 H 100 06/23/21 22:06 70 16 157/80 H 98 06/23/21 21:00 77 14 136/83 96 06/24/21 04:22 06/24/21 04:22 Coding Level of Care Code 93722 Subseq Hosp Care Lvl 3 Diagnoses Acute hyperkalemia E87.5 Admitted to intensive care unit Z78.9 Pulmonary edema J81.1 ESRD on dialysis N18.6; Z99.2
--- NOTE | 2021-06-24 09:11 | Hospitalist Progress Note ---
Date of Service June 24, 2021 Assessment & Plan (1) ESRD on dialysis: Plan: Attending: Dr. Lemus Impression: 60-year-old Moroccan male that is visiting his son in [place]. Receives hemodialysis twice a week typically. Presents with shortness of breath and hyperkalemia. Scheduled for hemodialysis today under the supervision of Dr. Naranjo. Patient with mature fistula Continue to follow labs per nephrology Dialysis diet May benefit from dialysis today and tomorrow. Will discuss discharge planning with nephrology (2) HTN (hypertension): Plan: Patient typically on bisoprolol as an outpatient This is been held as patient has significant hypotension after dialysis Patient looks like he is on scheduled midodrine. This should probably only be as needed with dialysis per nephrology Patient does have a pronounced heart murmur Echocardiogram ordered Continue to monitor on telemetry at this time No chest pain No significant EKG changes (3) Hypotension: Plan: This seems to be more profound immediately after dialysis Midodrine 5 mg p.o. 3 times daily prn I suspect that this was ordered for post dialysis Follow vital signs per protocol (4) Anemia: Plan: Hemoglobin stable at 9.0 No evidence of acute bleeding Patient is hypervolemic Procrit per nephrology Follow serial labs (5) Acute hyperkalemia: Plan: Secondary to ESRD Treated medically last night Hemodialysis scheduled for today Follow serial labs (6) Diabetes: Plan: Patient unsure of hemoglobin A1c on a regular basis Hemoglobin A1c 06/19/2021 at [facility] was 6.4% Linagliptin at home NovoLog sliding scale insulin while inpatient (7) COPD (chronic obstructive pulmonary disease): Plan: Patient with shortness of breath which seems to be related to volume overload No bronchospasm on exam Patient uses Trelegy as an outpatient While inpatient we will use fluticasone furoate (Arnuity/ICS) and Umeclidinium/Vilanterol (Anoro/AC/LABA) Oxygenating well at 96% on room air Continue to monitor (8) DVT prophylaxis: Plan: Hold on chemical prophylaxis secondary to anemia Encourage ambulation in the room and in the hallways Admission and Anticipated Discharge Date Admission Date: June 23, 2021 Supervising Physician Co-Signing Physician Notes Patient seen and examined, chart reviewed, case discussed with Aleks olivera note converted to discharge note, see discharge summary for further documentation. Subjective Attending: Dr. Lemus This is a 60-year-old Moroccan male that presented for shortness of breath and missed hemodialysis. The patient receives hemodialysis in [facility] twice a week. He is here visiting his son at [facility] and plans to return home July 23, 2021. The patient was admitted with hyperkalemia and shortness of breath. He is scheduled for hemodialysis today with Dr. Naranjo. The patient continues on shortness of breath but is saturating well at 96% on room air. He has no cough. He denies any fever or chills. He is very tired today. Potassium this morning is 5.3. Phosphorus is 7.3. Patient denies any leg cramping or any other pain or problems. Review of Systems Review of Systems: All systems reviewed & are unremarkable except as noted in Subjective Physical Exam Physical Exam: GENERAL : No acute distress EYES: No icterus, gaze conjugate NOSE: No evidence of epistaxis MOUTH: No lesions or candidiasis NECK: Supple. Positive for bilateral carotid bruits LUNGS: Bibasilar Rales HEART: Regular, rate controlled. Harsh 3/5 systolic murmur appreciated ABDOMEN: Soft, NT, ND, BS Present EXTREMITIES: No LE edema, pedal pulses intact NEURO: A&OX3 Results & Data Results & Data ([facility]) Vital Signs (Past 12 Hours) Vital Signs Temp Pulse Pulse Resp BP BP Pulse Ox 06/24/21 08:00 70 06/24/21 01:07 78 11 L 107/66 96 06/24/21 00:07 81 11 L 130/64 94 06/24/21 00:00 78 06/23/21 23:07 80 14 144/77 H 96 06/23/21 22:13 36.8 C 77 76 16 173/82 H 98 06/23/21 22:07 80 14 173/82 H 100 06/23/21 22:06 70 16 157/80 H 98 Laboratory Results 06/24/21 04:22 06/24/21 04:22 Diagnostic Findings Chest X-Ray 06/23/21 16:33 XR chest 1V portable CLINICAL HISTORY: Dyspnea COMPARISON STUDY: Chest radiograph June 18, 2021. FINDINGS: Lung volumes are normal. There is no pneumothorax or pleural effusion. Interstitial thickening and mild bilateral lower lung opacities have slightly improved since prior examination. Mild cardiomegaly is unchanged. IMPRESSION: Interstitial thickening and mild bilateral lower lung opacities which have slightly improved since prior exam. The findings favor pulmonary edema however an infectious process could appear similar. ACT 112: Negative or not required by law. Electronically signed by: Ruddy North M.D. 06/23/2021 5:07 PM PG Care Time/CCT Total # of Minutes Spent Total Time Spent with Patient: Total time spent is greater than 50% in coordination of care (as documented) at patient's floor/unit and/or counseling patient: Coding Level of Care Code 96561 Subseq Hosp Care Lvl 3 Diagnoses ESRD on dialysis N18.6; Z99.2 HTN (hypertension) I10 Hypotension I95.9 Anemia D64.9 Acute hyperkalemia E87.5 Diabetes E11.9 DVT prophylaxis Z29.9 COPD (chronic obstructive pulmonary disease) J44.9 Time Spent (min) 30 Comment Including discussion with specialists (operations recruiter and paste mixing supervisor)
--- NOTE | 2021-06-24 09:29 | Nephrology Progress Note ---
Date of Service June 24, 2021 Assessment & Plan (1) Hyperkalemia: Plan: * Improved following medical management * No response to IV diuretic therapy. Will hold further IV Furosemide * Agree w/ starting low K diet (2) ESRD on dialysis: Plan: * I have spoken w/ the HD RN broadcast director operations. HD will be provided this morning. Orders have been entered into the EMR * Message left at [facility] HD unit to facilitate outpatient HD scheduling * Will consult case management to assist with outpatient HD scheduling * [facility] HD phone # provided. Advised patient to contact unit 2 weeks prior to any future scheduled visits (3) Anemia: Plan: * Will provide REGAN w/ HD today (4) Diabetes: (5) HTN (hypertension): Admission and Anticipated Discharge Date Admission Date: June 23, 2021 Subjective Mr. Camacho was evaluated in his hospital room this morning. He c/o mild dyspnea but reports no complications overnight. He did have one loose BM in response to Veltassa therapy yesterday. He is anxious to have dialysis this morning and then be discharged Review of Systems Constitutional: no fever Eyes: no problem reported Ear, Nose, Mouth, Throat: no problem reported Respiratory: + dyspnea; no cough mild Cardiovascular: no chest pain, no palpitations and no edema Gastrointestinal: no abdominal pain, no nausea, no vomiting and no diarrhea/loose stools Genitourinary: no dysuria, no urinary hesitancy or no hematuria Musculoskeletal: no back pain Integumentary: no rash Neurologic: no falls, no dizziness and no confusion Physical Exam Constitutional: not in distress Eyes: PERRL, conjunctivae normal, anicteric sclerae ENMT: external ear and nose normal, oropharynx normal Neck: trachea midline, no thyromegaly Respiratory: normal respiratory effort and able to speak in complete sentences; no respiratory distress Cardiovascular: Rate/Rhythm: + tachycardic Heart Sounds: + murmur (systolic murmur at RUSB radiating to carotids) Gastrointestinal (Abdomen): Inspection/Auscultation: normal bowel sounds Neurologic: awake (alert, nonfocal) Results & Data ([facility]) Vital Signs (Past 12 Hours) Vital Signs Temp Pulse Pulse Resp BP BP Pulse Ox 06/24/21 08:07 68 12 157/87 H 95 06/24/21 08:00 70 06/24/21 07:07 74 14 146/73 H 92 06/24/21 06:07 67 13 156/75 H 92 06/24/21 05:07 68 17 147/74 H 94 06/24/21 04:07 71 15 150/79 H 92 06/24/21 03:07 70 12 136/60 94 06/24/21 02:07 68 13 120/60 95 06/24/21 01:07 78 11 L 107/66 96 06/24/21 00:07 81 11 L 130/64 94 06/24/21 00:00 78 06/23/21 23:07 80 14 144/77 H 96 06/23/21 22:13 36.8 C 77 76 16 173/82 H 98 06/23/21 22:07 80 14 173/82 H 100 06/23/21 22:06 70 16 157/80 H 98 Laboratory Results Laboratory Tests 06/24/21 06/24/21 04:22 04:22 WBC 10.85 H Hgb 9.0 L Hct 28.2 L Plt Count 426 H Sodium 138 Potassium 5.3 H Chloride 105 Carbon Dioxide 21 BUN 82 H Creatinine 13.00 H* D Glucose 90 Calcium 8.3 L Phosphorus 7.3 H Magnesium 2.3 PG Care Time/CCT Total # of Minutes Spent Total Time Spent with Patient: Total time spent is greater than 50% in coordination of care (as documented) at patient's floor/unit and/or counseling patient: Coding Level of Care Code 18842 Subseq Hosp Care Lvl 3 Diagnoses Hyperkalemia E87.5 ESRD on dialysis N18.6; Z99.2 Anemia D64.9 Diabetes E11.9 HTN (hypertension) I10
[2021-06-24] MEDS ORDERED: INSULIN ASPART 100 UNITS/ML 3 ML PEN SC SCH (11:30)
[2021-06-24] MEDS: HEPARIN SOD (PORCINE) 1000 UNIT/ML IV SCH ×2 (11:34→11:35)
[2021-06-24] MEDS ORDERED: SEVELAMER HCL 800 MG TABLET PO SCH (12:00)
--- NOTE | 2021-06-24 13:07 | XCELERA ---
[id number]_[id number]
--- NOTE | 2021-06-24 14:40 | Discharge Summary ---
Date of Service June 24, 2021 Admission HPI Per Admitting Provider Jose Camacho is a 60 year old male with end stage renal disease on dialysis who presents to the ER with worsening shortness of breath starting today. He is from [facility] but travelling to [place] to visit his son. He did not set up dialysis plans prior to travelling as he thought he would just have to turn up to the dialysis center at [facility] as he has dialysis through [facility] in [facility] on Friday and Tuesdays. He was sent to the ER from [facility] and admitted here overnight on June 182020 due to not receiving his usual dialysis with associated shortness of breath and hyperkalemia (potassium 7.5). He received two dialysis sessions and then left against medical advice with no confirmed dialysis appointment in the outpatient settings. He reports not being accepted at [facility] but he is currently working with [facility] and potentially will have dialysis set up on Friday. Due to an elevated WBC with CXR changes possible of pneumonia and hypotension on admission he was also treated for bacterial pneumonia with IV vancomycin and cefepime during his inpatient stay and he was discharged on Augmentin. However procalcitonin was negative and CXR changes were most likely pulmonary edema. Fortunately blood cultures have subsequently been negative. He returns today due to increased shortness of breath while eating in a restaurant. In the emergency room, he is not hypoxic, potassium 6.6, blood pressure 157/97. Nephrology were contacted and recommended medical management for hyperkalemia with ICU admission with planned dialysis tomorrow. COVID test is pending at this time. Admission Exam Per Admitting Provider Constitutional: well developed; no acute distress Eyes: + anicteric sclerae; normal pupil size ENMT: Mouth: no oral mucosal abnormality and oral mucous membranes not dry Neck: normal visual inspection and trachea midline Respiratory: normal respiratory effort and + uses accessory muscles Auscultation: + crackles (fine bibasal); no diminished lung sounds and no wheezes Cardiovascular: Rate/Rhythm: regular rate Heart Sounds: normal S1 and normal S2 Extremities: + edema (trace pre-tibial b/l equal) and + AV fistula Gastrointestinal (Abdomen): normal bowel sounds, soft, nontender, no hepatosplenomegaly Musculoskeletal: no cyanosis or clubbing, extremities motor strength 5/5 Skin: no rashes, warm and dry normal turgor Neurologic: moves all extremities and awake; not confused Motor/Sensory: no tremor and no asterixis Psychiatric: A+Ox3, euthymic affect Principal Diagnosis Missed dialysis for end-stage renal disease/hyperkalemia Discharge Exam GENERAL : No acute distress EYES: No icterus, gaze conjugate NOSE: No evidence of epistaxis MOUTH: No lesions or candidiasis NECK: Supple. Positive for bilateral carotid bruits LUNGS: Bibasilar Rales HEART: Regular, rate controlled. Harsh 3/5 systolic murmur appreciated ABDOMEN: Soft, NT, ND, BS Present EXTREMITIES: No LE edema, pedal pulses intact NEURO: A&OX3 Discharge Data Allergies Allergy/AdvReac Type Severity Reaction Status Date / Time No Known Allergies Allergy Unverified 06/23/21 17:59 Consultations 06/23/21 18:49 ED Decision to Admit Stat 06/23/21 18:50 Consult Nephrology Routine 06/23/21 19:16 Consult Solar Mechanical Engineer Stat 06/23/21 22:13 Consult Solar Mechanical Engineer Routine Ordered Studies 06/24/21 04:22 06/24/21 04:22 Hospital Course (1) ESRD on dialysis: Attending: Dr. Lemus Impression: 60-year-old Chinese male that is visiting his son in [place]. Receives hemodialysis twice a week typically. Presents with shortness of breath and hyperkalemia. Scheduled for hemodialysis today under the supervision of Dr. Naranjo. Patient with mature fistula Continue to follow labs per nephrology Dialysis diet May benefit from dialysis today and tomorrow. Patient to be set up with [facility] for outpatient dialysis (2) HTN (hypertension): Patient typically on bisoprolol as an outpatient This is been held as patient has significant hypotension after dialysis Patient looks like he is on scheduled midodrine. This should probably only be as needed with dialysis per nephrology Patient does have a pronounced heart murmur Echocardiogram with preserved left ventricular ejection fraction of 55 to 60%. There is mild concentric left ventricular hypertrophy. There is also mild valvular aortic stenosis. Patient was monitored on telemetry throughout his hospital stay No chest pain No significant EKG changes (3) Hypotension: This seems to be more profound immediately after dialysis Midodrine 5 mg p.o. 3 times daily ONLY NEEDED I suspect that this was ordered for post dialysis Follow vital signs per protocol (4) Anemia: Hemoglobin stable at 9.0 No evidence of acute bleeding Patient is hypervolemic Procrit per nephrology (5) Acute hyperkalemia: Secondary to ESRD Treated medically last night Hemodialysis scheduled for today Recommend outpatient dialysis tomorrow (6) Diabetes: Patient unsure of hemoglobin A1c on a regular basis Hemoglobin A1c 06/19/2021 at [facility] was 6.4% Linagliptin at home NovoLog sliding scale insulin while inpatient (7) COPD (chronic obstructive pulmonary disease): Patient with shortness of breath which seems to be related to volume overload No bronchospasm on exam Patient uses Trelegy as an outpatient While inpatient we will use fluticasone furoate (Arnuity/ICS) and Umeclidinium/Vilanterol (Anoro/AC/LABA) Discharge home on regular dose of Trelegy inhaler (ICS/AC/LABA) Oxygenating well at 96% on room air Continue to monitor (8) DVT prophylaxis: Hold on chemical prophylaxis secondary to anemia Encourage ambulation on discharge (9) Pulmonary edema: (10) Admitted to intensive care unit: Total Time Total Time Spent Total Time Spent (In Minutes): 40 Discharge Plan Discharge Items Patient Disposition: Home - Self-Care Reason For Visit: ESRD, HYPERKALEMIA Discharge Diagnosis: End-stage renal disease, hyperkalemia Activity: Resume your previous activity Lifting: Gradually increase as tolerated Sexual Activity: When tolerated Exercise/Sports: Gradually increase as tolerated Weightbearing: Full weightbearing Non-emergency contact: Finger Buffs Assembler Call non-emergency contact if: you have any medication questions Follow-up/Referrals: PCP,NO [Primary Care Provider] - Diet: Dialysis Renal and Heart Healthy Add Attending Provider Instructions: You were admitted for acute on chronic renal failure secondary to your end-stage renal disease. It is advised you stay for 1 more day for monitoring of electrolytes as well as dialysis tomorrow. Please watch for fluid overload which may manifest as shortness of breath, difficulty breathing, chest hea viness, etc. If you have any of the symptoms please call the nephrology department or present to the emergency department for further evaluation and treatment. Please report for outpatient renal dialysis as advised by Dr. Lemus. If you need help facilitating anything tomorrow you can feel free to call the hospital at [phone] and ask for the case management department. It is advised that you stop using tobacco products containing nicotine completely. Pending Studies at Discharge: No Stand-Alone Forms: My [facility] [email or web address], Smoking Cessation Medications and DC Order Prescriptions: Continued gabapentin 400 mg Capsule 400 mg PO HS RF: 0 DIALYVITE 800 with Iron 29-800 mg-mcg Tablet 1 tab PO DAILY RF: 0 linagliptin 5 mg Tablet 5 mg PO DAILY RF: 0 Carbomer Gel-Aqueous Gel 1 ea miscellaneous HS RF: 0 Trelegy Ellipta 100-62.5-25 mcg Blister With Device 1 inh INHALATION DAILY RF: 0 amoxicillin-pot clavulanate [Augmentin] 500-125 mg tablet See Rx Instructions .ROUTE .COMPLEX Qty: 7 RF: 0 midodrine 5 mg tablet 5 mg PO TID PRN (Reason: low blood pressure during dialysis) Qty: 10 RF: 0 Discharge Orders: Discharge Order (Routine); Ordered 06/24/21 Ordered By: Aleks Menard Admission Data Admit Date/Time: 06/23/21 18:54 Attending Provider: Jacobo Lemus Admit Provider: Roberto Schroeder Primary Care Provider: PCP,NO Other Providers: Marcellus Hearn ; Roberto Schroeder ; King Naranjo ; Aleks Menard ; Christian Parks ; Jose R Pennington ; Brenden Dominique ; Ferdinand Matthews ; Mak Gallagher Other Interventions: Discharge Summary Assessment (RN) Last Done: 06/24/21 14:38 Supervising Physician Co-Signing Physician Notes Patient seen and examined, chart reviewed, case discussed with Aleks Menard PA-C and I agree with the assessment and plan as above except as otherwise noted above. All labs and images reviewed Mr. Carson is a 60yo male traveling to [place] from [facility] with end-stage renal disease on dialysis who presented to the emergency department with worsening shortness of breath. Prior to traveling had not establish in a dialysis center, as had previously been seen by [facility] and did not realize this would need to be scheduled in advance across borders. Reports he is being set up with [facility] and has been established so that he will be able to have dialysis tomorrow 06/25. Patient is seen at the bedside at near completion of his dialysis treatment, patient reports that he would like to be discharged as soon as dialysis is complete. He does not want to stay for any repeat electroly te lab draws, or overnight for any reason. He reports he understands that he is dialysis dependent, and that both fluid overload and hyperkalemia can be life- threatening, and that if he is unable to get dialysis tomorrow he will likely weakly end up in a worsened condition requiring hospitalization. He reports he understands this, but still like to be discharged tonight. Time of assessment he is not medically unstable, and can be discharged although his to need wellbeing is highly dependent on appropriate outpatient dialysis. His was discussed with case management, and patient was seen by nephrology during admission, case management to follow through with discussion with dialysis center tomorrow to help facilitate care. Patient discharged as noted above. General: A&Ox3. NAD. Cooperative. HEENT: Atraumatic, normocephalic. Pulls round, equal, and responsive to light and accommodation. Visual acuity grossly intact, hearing grossly intact. Horizontal EOMs intact without nystagmus. Pulm: Bilateral basilar crackles, moderate air movement,. Symmetrical chest rise. No increase work of breathing. No respiratory distress. Breathing on room air Cardiac: RRR, systolic murmur present, no rubs or gallops. Radial pulses intact and symmetrical. Abdominal: Nontender, nondistended, soft. BS present. Extremities: Warm, dry, no edema Acute Fluid Overload 2/2 Chronic Renal Failure Dialysis Dependent - Breathing stable, clinically improved following dialysis - F/u with outpatient dialysis for 2nd dialysis tomorrow Total attending time spent including discussion with patient, review of labs and images, coordination of care, and documentation approximately 35 minutes. Coding Level of Care Code D/C DAY MANAGEMENT >30 MINS Diagnoses ESRD on dialysis N18.6; Z99.2 HTN (hypertension) I10 Hypotension I95.9 Anemia D64.9 Acute hyperkalemia E87.5 Diabetes E11.9 COPD (chronic obstructive pulmonary disease) J44.9 DVT prophylaxis Z29.9 Pulmonary edema J81.1 Admitted to intensive care unit Z78.9 Time Spent (min) 45
--- NOTE | 2021-06-24 20:26 | Electrocardiogram Report ---
Test Reason : Blood Pressure : / mmHG Vent. Rate : 079 BPM Atrial Rate : 079 BPM P-R Int : 156 ms QRS Dur : 086 ms QT Int : 368 ms P-R-T Axes : 020 -50 010 degrees QTc Int : 422 ms Sinus rhythm Premature atrial complexes Left axis deviation Abnormal ECG When compared with ECG of 18-JUN-2021 10:47, No significant change Confirmed by Francis Hill ([id number]) on 06/24/2021 8:26:02 PM Referred By: REFERRED SELF Confirmed By:Francis Hill
== END 2021-06-24 14:59 | disposition home or self-care (01) | DRG 682 ==
LOC: ED 16:20 → 1E 18:54 → SUATTDRO 18:54 → 1E 22:06